=== PATIENT | female | born 1975 | race Caucasian/White ===

== ENCOUNTER 2016-04-14 20:54 | Emergency (ER) | payer OTHER ==
[2016-04-14 21:59] LABS: Hematocrit 39 % (35-47); Hemoglobin 12.8 g/dl (12.0-16.0); Mean Corpuscular HGB Conc 33 g/dl (31-36); Mean Corpuscular Hemoglobin 28 pg (27-31); Mean Corpuscular Volume 84 fL (80-97); Mean Platelet Volume 8 um3 (7.4-10.4); Red Blood Count 4.62 10^6/ul (4.0-5.4); Red Cell Distribution Width 13 % (10.5-15); White Blood Count 14.2 10^3/ul (3.5-10.8)
[2016-04-14 22:11] LABS: Comments Flag Yes
[2016-04-14 22:12] LABS: Add Diff/Slide Review? Slide Review Added
[2016-04-14 22:37] LABS: BUN/Creatinine Ratio 18.7 (8-20); Calcium 9.1 mg/dL (8.6-10.3); EGFR African American 109.5 (>60); EGFR Non-African American 85.2 (>60); Globulin 3.1 g/dL (2-4); Potassium 3.5 mmol/L (3.5-5.0); Total Bilirubin 1.1 mg/dL (0.2-1.0); Total Protein 7.1 g/dL (6.4-8.9)
--- NOTE | 2016-04-14 22:41 | ED ---
Gardenia Conde Claudia, scribed for Tyson Cannon MD on 04/14/16 at 2119 . Hypertension - HPI Summary HPI Summary: 40 year old female presents to the ED with elevated BP. Pt notes that she has had left sided neck and jaw pain for the past 1-2 days since driving back from [place]. She notes left arm pain since today. Pt went to a chiropractor for the neck pain yesterday and they took her BP and it measured high. Pt also noted taking it several times today and it was still elevated ( 258/154) and she became concerned since she has no PMHx of HTN. Pt has made an appt with her PCP for tomorrow. - History of Current Complaint Chief Complaint: EDHypertension Stated Complaint: HIGH BLOOD PRESSURE/LT ARM PAIN Time Seen by Provider: 04/14/16 21:09 Hx Obtained From: Patient Onset/Duration: Started Hours Ago - Allergies/Home Medications Allergies/Adverse Reactions: Allergies Allergy/AdvReac Type Severity Reaction Status Date / Time Hydrocodone Allergy Intermediate Hallucinati Verified 09/18/15 16:13 ons Latex Allergy Intermediate Hives Verified 09/18/15 16:13 Nitrofurantoin Allergy Intermediate Hives Verified 09/18/15 16:13 [From Macrobid] Sulfamethoxazole Allergy Intermediate Hives Verified 09/18/15 16:13 w/Trimethoprim [From Bactrim] PMH/Surg Hx/FS Hx/Imm Hx Previously Healthy: Yes Endocrine/Hematology History: Denies: Hx Diabetes, Hx Systemic Lupus Erythematosus Cardiovascular History: Denies: Hx Hypertension History: Denies: Hx Dialysis, Hx Renal Disease Musculoskeletal History: Denies: Hx Rheumatoid Arthritis - Cancer History Hx Chemotherapy: No - Surgical History Surgery Procedure, Year, and Place: stomach surgery/tonsils-adnoids; hysterectomy, 2015, [place] Infectious Disease History: No Infectious Disease History: Denies: Traveled Outside the [place] in Last 30 Days - Social History Occupation: Employed Full-time Lives: With Family Substance Use Type: Reports: None Review of Systems Constitutional: Negative Eyes: Negative ENT: Negative Positive: Other - elevated BP Respiratory: Negative Gastrointestinal: Negative Genitourinary: Negative Positive: Other - left neck, jaw and left arm pain Skin: Negative Neurological: Negative Psychological: Normal All Other Systems Reviewed And Are Negative: Yes Physical Exam Triage Information Reviewed: Yes Vital Signs On Initial Exam: Initial Vitals Temp Pulse Resp BP Pulse Ox 98.2 F 97 16 193/91 99 04/14/16 20:56 04/14/16 20:56 04/14/16 20:56 04/14/16 20:56 04/14/16 20:56 Vital Signs Reviewed: Yes Appearance: Positive: Well-Appearing, No Pain Distress, Well-Nourished Skin: Positive: Warm Head/Face: Positive: Normal Head/Face Inspection Eyes: Positive: [place] ENT: Positive: Hearing grossly normal Neck: Positive: Supple Respiratory/Lung Sounds: Positive: Clear to Auscultation, Breath Sounds Present Cardiovascular: Positive: RRR Abdomen Description: Positive: Nontender, Soft Bowel Sounds: Positive: Present Musculoskeletal: Positive: Strength/ROM Intact Neurological: Positive: Sensory/Motor Intact, Alert, Oriented to Person Place, Time Psychiatric: Positive: Affect/Mood Appropriate Diagnostics - Vital Signs Vital Signs Temp Pulse Resp BP Pulse Ox 04/14/16 20:56 98.2 F 97 16 193/91 99 - Laboratory Lab Results: Lab Results 04/14/16 Range/Units 21:50 WBC 14.2 H (3.5-10.8) 10^3/ul RBC 4.62 (4.0-5.4) 10^6/ul Hgb 12.8 (12.0-16.0) g/dl Hct 39 (35-47) % MCV 84 (80-97) fL MCH 28 (27-31) pg MCHC 33 (31-36) g/dl RDW 13 (10.5-15) % Plt Count 292 (150-450) 10^3/ul MPV 8 (7.4-10.4) um3 Neut % (Auto) 50.4 (38-83) % Lymph % (Auto) 38.0 (25-47) % [place] % (Auto) 6.5 (1-9) % Eos % (Auto) 4.3 (0-6) % Baso % (Auto) 0.8 (0-2) % Absolute Neuts (auto) 7.2 (1.5-7.7) 10^3/ul Absolute Lymphs (auto) 5.4 H (1.0-4.8) 10^3/ul Absolute Monos (auto) 0.9 H (0-0.8) 10^3/ul Absolute Eos (auto) 0.6 (0-0.6) 10^3/ul Absolute Basos (auto) 0.1 (0-0.2) 10^3/ul Absolute Nucleated RBC 0.01 10^3/ul Nucleated RBC % 0 Hem Pathologist Commnt Pending Result Diagrams: 04/14/16 21:50 04/14/16 21:50 Lab Statement: Any lab studies that have been ordered have been reviewed, and results considered in the medical decision making process. - EKG 21:28 Cardiac Rate: NL EKG Rhythm: Sinus Rhythm - NSR: 94 beats/min EKG Interpretation: 1st degree heart block Re-Evaluation - Re-Evaluation First Eval Change: Improved Hypertension Course/Dx - Course Assessment/Plan: Pt presents with HTN. After an EKG within nml limits as well as observation. Pt is agreeable with d/c home and follow-up with PCP as per planned appt tomorrow. - Diagnoses Provider Diagnoses: HTN (hypertension) Discharge - Discharge Plan Condition: Stable Disposition: HOME Patient Education Materials: Hypertension (ED) Referrals: Tyler Jarvis DO [Primary Care Provider] - 1 Day (Please follow-up ) The documentation as recorded by the Gardenia novoa Claudia accurately reflects the service I personally performed and the decisions made by , Tyson Cannon MD.
[2016-04-14 23:23] VITALS: BP 143/75
== END 2016-04-14 23:25 | disposition home or self-care (01) ==
LOC: ED 20:54
DX: I48.91 Unspecified atrial fibrillation (principal); Z95.810 Presence of automatic (implantable) cardiac defibrillator; E78.00 Pure hypercholesterolemia, unspecified; Z88.2 Allergy status to sulfonamides; Z87.891 Personal history of nicotine dependence
CPT/HCPCS: 36415; 80053; 84702; 85025; 85060; 93005

== ENCOUNTER 2016-05-16 21:30 | Emergency (ER) | payer OTHER ==
[2016-05-16 21:41] VITALS: BP 174/93
--- NOTE | 2016-05-16 22:21 | UC ---
Respiratory Complaint HPI - HPI Summary HPI Summary: 40 year old female complaining of sore throat, lymphadenopathy, fatigue, nasal congestion, and fatigue which began . - History of Current Complaint Chief Complaint: UCRespiratory Stated Complaint: SORE THROAT Time Seen by Provider: 05/16/16 21:48 Hx Obtained From: Patient Hx Last Menstrual Period: hysterectomy ?: No Onset/Duration: Gradual Onset Associated Signs And Symptoms: Positive: Chills, URI, Nasal Congestion, Hoarseness - Allergies/Home Medications Allergies/Adverse Reactions: Allergies Allergy/AdvReac Type Severity Reaction Status Date / Time Hydrocodone Allergy Intermediate Hallucinati Verified 05/16/16 21:41 ons Latex Allergy Intermediate Hives Verified 05/16/16 21:41 Nitrofurantoin Allergy Intermediate Hives Verified 05/16/16 21:41 [From Macrobid] Sulfamethoxazole Allergy Intermediate Hives Verified 05/16/16 21:41 w/Trimethoprim [From Bactrim] Home Medications: Home Medications Estrogens, Conjugated [Premarin] 0.3 mg PO 05/16/16 [History] PMH/Surg Hx/FS Hx/Imm Hx Previously Healthy: Yes Endocrine History Of: Denies: Diabetes Cardiovascular History Of: Denies: Hypertension Respiratory History Of: Denies: COPD, Asthma, Bronchitis, Pneumonia, Pulmonary Embolism Neurological History Of: Denies: TIA, CVA, Dementia, Seizures, Migraine Psychological History Of: Denies: Anxiety, Depression, Bipolar Disorder, Schizophrenia, Post Traumatic Stress Disorder - Surgical History Surgical History: Yes Surgery Procedure, Year, and Place: stomach surgery/tonsils-adnoids; hysterectomy, 2015, [place]. 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2 F 05/16/16 21:35 Pulse 82 02/06/17 21:35 Resp 16 05/16/16 21:35 BP 174/93 05/16/16 21:35 Pulse Ox 99 05/16/16 21:35 Vital Signs Reviewed: Yes Eye Exam: Normal ENT: Positive: Pharyngeal erythema, Nasal congestion, TMs normal, Tonsillar exudate - Pharyngeal exudate Dental Exam: Normal Neck: Positive: Enlarged Nodes @ - Cervical Respiratory: Positive: Chest non-tender, Lungs clear, Normal breath sounds, No respiratory distress Cardiovascular: Positive: RRR, No Murmur, Pulses Normal Abdomen Description: Positive: Nontender, No Organomegaly, Soft Bowel Sounds: Positive: Present Musculoskeletal Exam: Normal Musculoskeletal: Positive: Strength Intact Neurological Exam: Normal Neurological: Positive: Alert Psychological Exam: Normal Skin Exam: Normal UC Diagnostic Evaluation - Laboratory O2 Sat by Pulse Oximetry: 99 Respiratory Course/Dx - Differential Dx/Diagnosis Provider Diagnoses: URI, likely viral Discharge - Discharge Plan Condition: Stable Disposition: HOME Patient Education Materials: Upper Respiratory Infection (ED) Forms: *Work Release Referrals: Tyler Jarvis DO [Primary Care Provider] - If Needed
== END 2016-05-16 22:39 | disposition home or self-care (01) ==
LOC: UCEAST 21:30
DX: J06.9 Acute upper respiratory infection, unspecified (principal); Z88.5 Allergy status to narcotic agent; Z88.1 Allergy status to other antibiotic agents; Z88.2 Allergy status to sulfonamides
CPT/HCPCS: 87651; 99211; G0463

== ENCOUNTER 2018-06-26 18:56 | Emergency (ER) | payer OTHER ==
--- OUTSIDE RECORDS SUMMARY | 2018-06-26 19:10 | XMS REPORT | Continuity of Care Document ---
:1975 External Reference #:[id number] Author Name Aldair Gordon M.D. Address [address] [facility] [address] [place] [address] Care Team Providers Name Role Phone HCP given Primary Care Physician Unavailable Payers Date Identification Numbers Payment Provider Subscriber Policy Number: [id number] Anamkelsicuca San PayID: [id number] [address] [place] [address] Advance Directives Description No Information Available Problems Date Description Provider Status Onset: 06/15/2012 Idiopathic scoliosis AND/OR Shon López Active kyphoscoliosis Onset: 06/15/2012 Obesity Shon López Active Onset: 06/15/2012 Migraine with typical aura Shon López Active Onset: 03/29/2013 Cough Tyler Jarvis D.O. Active Onset: 03/29/2013 Acute bronchitis Tyler Jarvis D.O. Active Onset: 10/23/2014 Vitamin D deficiency Tyler Jarvis D.O. Active Onset: 10/23/2014 Plantar fascial fibromatosis Tyler Jarvis D.O. Active Onset: 06/15/2016 Recurrent major depressive episodes Jazmín Lund PA Active Onset: 06/15/2016 Binge eating disorder Jazmín Lund PA Active Onset: 01/03/2017 Anxiety state Tyler Jarvis D.O. Active Onset: 02/23/2017 Vitamin B-complex deficiency Tyler Jarvis D.O. 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 Currently Working Tobacco Use Start: Unknown Never Smoked Cigarettes ETOH Use Denies alcohol use Recreational Drug Use Denies Drug Use Tobacco Use Start: Unknown Patient has never smoked Smoking Status Reviewed: 05/24/18 Patient has never smoked Exercise Type/Frequency Exercises sporadically Sun Exposure Uses sunscreen Seat Belt/Car Seat Yes Currently Active Patient is currently sexually active Contraceptive Methods None Age 1st [place] 14 Years Old Additional Info Sexual preference is men Allergies, Adverse Reactions, Alerts Date Description Reaction Status Severity Comments 05/25/2012 Sulfa Active 06/15/2012 Hydrocodone Active rash 12/04/2012 Bactrim Active hives, hospitalization 12/04/2012 Macrobid Active hives, hospitalization 10/23/2014 Latex Active 10/23/2014 Adhesives Active Medications Medication Date Status Form Strength Qnty SIG Indications Ordering Provider Womens Multi 04/29 Active Capsules daiy Bipap 02/19 Active Cevimeline HCL 10/24 Active Capsules 30mg take 1 capsule by mouth three times a day as needed for dry mouth Restasis 06/12 Active Emulsion 0.05% 1 drop OU Unknown Multid bid Premarin 06/13 Active Tablets 0.625mg take one tablet by mouth once daily Sumatriptan 10/25 Active Tablets 50mg 12tab take 1 G43.109 Simona Succinate s tablet by Tyler mouth AT D.O. Onset Of Migraine; May Repeat Once After 2 Hours If Needed; Max Dose Of 3 Days/Week Folic Acid 10/24 Hx Tablets 1mg 1 by mouth every day - 03/29 Hydroxychloroquin 06/12 Hx Tablets 200mg 2 po daily Unknown e Sulfate /2017 - 10/24 Cpap 9CM 06/12 Hx Unknown - 02/19 Vitamin D3 02/23 Hx Capsules 5000Unit 90cap 1 by mouth E55.9 Simona, Maximum Strength /2016 s every day Tyler, - D.O. 02/07 Prednisone 02/23 Hx Tablets 5mg 14tab 1 by mouth M06.9 S[place]chak, /2016 s every day Tyler, - for 2 D.O. 03/09 weeks Buspirone HCL 01/03 Hx Tablets 5mg 60tab take one F41.9 Sopchak, s tablet by Tyler, - mouth D.O. 02/07 twice a day as needed for anxiety Escitalopram 06/15 Hx Tablets 10mg 30tab 1 by mouth F33.9 Hektor, s every day ALISTAIR [place] - 01/02 Lidocaine 11/17 Hx Patches 5% 14uni apply 12 [facility] Tyler, - 12 hours D.O. 05/03 off needed to area of pain. Gabapentin 11/17 Hx Capsules 300mg 90cap 1 by mouth B02.9 S[place]chak, s three Tyler, - times a D.O. 05/03 day needed for nerve pain. Tramadol HCL 11/17 Hx Tablets 50mg 30tab 1-2 by R10.30 [place]ak, /2015 s mouth Tyler, - every 6 D.O. 09 hours as needed for pain Valacyclovir HCL 11/17 Hx Tablets 1gm 21tab 1 three B02.9 [facility] times a Tyler, - day for 7 D.O. Vitamin E 11/16 Hx Capsules daily Unknown - 06/14 Magox 400 10/25 Hx Tablets 400(241.3 360ta 1-4 G43.109 [facility], mg) mg bs tablets Tyler, - every D.O. 05/03 night at bedtime as directed for migraine prophilaxi s Vitamin D3 10/25 Hx Capsules 5000Unit 90cap 1 [facility]55.9 [facility] every day Tyler, - D.O. 06/14 Vitamin D 10/24 Hx Tablets 1000Unit 1 by mouth E55.9 Unknown every day - 10/25 Womens One Daily 10/24 Hx Tablets 1 po daily Unknown - 06/14 Tramadol HCL 09/17 Hx Tablets 50mg 30tab 1-2 by R10.30 s mouth Tyler, - every 6 D.O. 07/ hours as needed for pain Ondansetron HCL 01/30 Hx Tablets 4mg 21tab 1 tabs tid s as needed Tyler, - for D.O. 02/06 nausea/vom iting Probiotic Daily 01/30 Hx Capsules 1 unit R19.4 dose daily Tyler, - D.O. 04/01 Vitamin D3 10/23 Hx Tablets 5000Unit 90tab 1 tab by 268.9 [facility] s mouth Tyler, - every day D.O. 10/25 or 7 tabs once a week Premarin 10/22 Hx Tablets 1.25mg 1 tab Unknown daily - 09/18 Azithromycin 10/29 Hx Tablets 500mg 3tabs take 1 461.0 tablet by Tyler, - mouth D.O. 10/22 daily for 3 days for infection Flonase 10/29 Hx Suspension 50mcg/Act 1unit inhale 2 461.0 s sprays Tyler, - into D.O. 10/22 nostril daily in each nostril for nose inflammati on Anusol-HC 10/22 Hx Cream 2.5% 30gm apply 455.3 rectally Tyler, - four times D.O. 10/22 a day Vitamin C 10/21 Hx Chewtabs 500mg OTC 1 po daily - 10/22 Ventolin HFA 03/29 Hx Aerosol 108(90Bas 1unit inhale 2 786.2 [facility] s puffs by Tyler, - mcg/Act mouth D.O. 06/01 every hours as needed for cough or chest congestion Advair HFA 03/29 Hx Aerosol 230-21mcg 2 puffs 786.2 [place]ak, /2012 /Act twice a Tyler, - day until D.O. 06/01 No Active 12/04 Hx Unknown Medications /2012 - 12/04 Augmentin 12/04 Hx Suspension 250-62.5m 300ml 3 tsp by 683 S[place]chak, /2013 Rec g/5ML mouth Tyler, - twice a D.O. Augmentin 12/04 Hx Suspension 400-57mg/ 225ml 2.25 tsp Rec 5ML po bid x Tyler, - 10 days D.O. 12/04 No Active 12/04 Hx Unknown Medications /2012 - 12/04 Augmentin 12/04 Hx Suspension 250-62.5m 200ml 2 tsp by Rec g/5ML mouth Tyler, - twice a D.O. /2012 Amoxicillin 12/04 Hx Suspension 250mg/5ML 150ml 1 1/2 tsp Rec by mouth Tyler, - twice a D.O. 03/28 day x days No Active 05/25 Hx Unknown Medications - 05/25 Ibuprofen 05/25 Hx Tablets 800mg 60tab 1 po q6-8 786.59 Silco, s hrs prn Darion Quinteros M.D. 12/04 Ventolin HFA 05/25 Hx Aerosol 108(90Bas 1cani 2 puff q 466.0 Silcoff, e) mcg/ac ster 4-6 Darion Quinteros M.D. 05/25 Ventolin HFA 05/25 Hx Aerosol 108(90Bas 1cani 2 puff q 466.0 Silcoff, e) ster Enrique Quinteros - mcg/Act M.DRonald 12/04 Claritin-D 12 Hx Tablets ER 5-120mg OTC prn use Unknown Hour /0000 12HR - 04/15 Metronidazole Hx Gel 0.75% Use 1 Unknown /0000 Applicator - ful Every 06/14 Evening AT Bedtime For 5 Days Premarin Hx Tablets 0.3mg 1 tab po Unknown /0000 daily - 06/15 Medications Administered in Office Medication Date Status Form Strength Qnty SIG Indications Ordering Provider B12 Injection Administered Injection Simona 019 Tyler, D.O. B12 Injection Administered Injection Nurse's 019 Schedule SC/Im Administered Injection Sopchak, Injections 019 Tyler, D.O. B12 Injection Administered Injection Nurse's 018 Schedule SC/Im Administered Injection Nurse's Injections 018 Schedule B12 Injection Administered Injection Nurse's 018 Schedule SC/Im Administered Injection Nurse's Injections 018 Schedule B12 Injection Administered Injection Sopchak, 018 Tyler, D.O. SC/Im Administered Injection Sopchak, Injections 018 Tyler, D.O. B12 Injection Administered Injection S[place]chak, 018 Tyler, D.O. SC/Im Administered Injection Sopchak, Injections 018 Tyler, D.O. B12 Injection Administered Injection Sopchak, 018 Tyler, D.O. SC/Im Administered Injection Sopchak, Injections 018 Tyler, D.O. B12 Injection Administered Injection Sopchak, 017 Tyler, D.O. SC/Im Administered Injection Sopchak, Injections 017 Tyler, D.O. Immunizations CPT Code Status Date Vaccine Lot # [id number] Given 02/08/2018 Influenza Virus Vaccine, Quadrivalent, Split, [id number] Preservative Free 11447 Given 04/12/2017 Influenza Virus Vaccine, Quadrivalent, Split, [id number] Preservative Free 06554 Given 04/15/2016 Influenza Virus Vaccine, Quadrivalent, Split, [id number] Preservative Free 48158 Given 04/05/2013 Adacel or Boostrix, TDaP [id number] 47404 Given 04/05/2013 Flu, Split Virus [id number] Vital Signs Date Vital Result Comment 06/12/2018 9:05am BP Systolic 152 mmHg BP Diastolic 92 mmHg BP Systolic Recheck 144 mmHg 138/86 BP Diastolic Recheck 77 mmHg 138/86 Heart Rate 71 /min Weight 229.00 lb with shoes 05/24/2018 8:39am BP Systolic 128 mmHg BP Diastolic 88 mmHg Height 68.5 inches 5'8.50" Weight 230.00 lb BMI (Body Mass Index) 34.5 kg/m2 05/15/2018 3:13pm BP Systolic 136 mmHg BP Diastolic 86 mmHg Weight 234.00 lb 04/30/2018 11:00am BP Systolic 134 mmHg BP Diastolic 80 mmHg Weight 238.00 lb w/shoes 03/30/2018 9:35am BP Systolic 142 mmHg BP Diastolic 82 mmHg Weight 249.50 lb 02/20/2018 9:41am BP Systolic 134 mmHg BP Diastolic 78 mmHg Height 68.50 inches 5'8.50" Weight 242.00 lb BMI (Body Mass Index) 36.3 kg/m2 02/08/2018 8:46am BP Systolic 140 mmHg BP Diastolic 80 mmHg Height 68.50 inches 5'8.50" Weight 242.00 lb BMI (Body Mass Index) 36.3 kg/m2 08/03/2017 1:40pm BP Systolic 124 mmHg BP Diastolic 76 mmHg 06/13/2017 4:12pm BP Systolic 134 mmHg BP Diastolic 72 mmHg Weight 242.00 lb 04/12/2017 2:59pm BP Systolic 124 mmHg BP Diastolic 78 mmHg Weight 238.00 lb 02/23/2017 2:00pm BP Systolic 142 mmHg BP Diastolic 92 mmHg Weight 236.00 lb 01/03/2017 2:14pm BP Systolic 132 mmHg BP Diastolic 85 mmHg Height 67.5 inches 5'7.50" Weight 234.00 lb BMI (Body Mass Index) 36.1 kg/m2 06/15/2016 11:15am BP Systolic 138 mmHg BP Diastolic 85 mmHg Weight 233.00 lb with shoes 05/04/2016 11:23am BP Systolic 130 mmHg BP Diastolic 85 mmHg Weight 236.00 lb with shoes 04/15/2016 3:49pm BP Systolic 136 mmHg k BP Diastolic 84 mmHg k Heart Rate 70 /min Weight 236.00 lb 11/18/2015 5:18pm BP Systolic 144 mmHg BP Diastolic 91 mmHg Heart Rate 82 /min Body Temperature 98.0 F Weight 229.00 lb w/shoes 10/26/2015 9:55am BP Systolic 148 mmHg BP Diastolic 88 mmHg Height 68 inches 5'8" Weight 230.00 lb BMI (Body Mass Index) 35.0 kg/m2 09/19/2015 9:26am BP Systolic 142 mmHg BP Diastolic 90 mmHg Heart Rate 80 /min Respiratory Rate 16 /min Body Temperature 98.2 F 09/18/2015 2:02pm BP Systolic 166 mmHg BP Diastolic 87 mmHg BP Systolic Recheck 162 mmHg BP Diastolic Recheck 99 mmHg Heart Rate 89 /min 01/30/2015 2:14pm BP Systolic 135 mmHg BP Diastolic 82 mmHg Body Temperature 98.1 F Weight 242.00 lb with sneakers 10/23/2014 10:40am BP Systolic 136 mmHg BP Diastolic 84 mmHg Height 68 inches 5'8" Weight 243.00 lb BMI (Body Mass Index) 36.9 kg/m2 10/29/2013 5:36pm BP Systolic 118 mmHg BP Diastolic 78 mmHg Body Temperature 99.1 F 10/22/2013 10:37am BP Systolic 118 mmHg BP Diastolic 80 mmHg Body Temperature 98.4 F Height 68 inches 5'8" Weight 220.00 lb BMI (Body Mass Index) 33.4 kg/m2 Last Menstrual Period [id number] 06/01/2013 10:33am BP Systolic 148 mmHg BP Diastolic 84 mmHg Heart Rate 89 /min Body Temperature 98.5 F Height 68 inches 5'8" Weight 229.00 lb shoes on BMI (Body Mass Index) 34.8 kg/m2 04/05/2013 10:12am BP Systolic 140 mmHg BP Diastolic 76 mmHg Weight 226.00 lb shoes on 03/29/2013 3:24pm BP Systolic 140 mmHg BP Diastolic 88 mmHg Heart Rate 99 /min O2 % BldC Oximetry 98 % on Ra Body Temperature 98.3 F Weight 225.00 lb shoes on 12/19/2012 4:57pm BP Systolic 130 mmHg BP Diastolic 84 mmHg Body Temperature 98.7 F 12/04/2012 9:31am BP Systolic 140 mmHg BP Diastolic 80 mmHg Body Temperature 98.7 F Height 68 inches 5'8" Weight 225.00 lb BMI (Body Mass Index) 34.2 kg/m2 06/15/2012 2:18pm BP Systolic 128 mmHg BP Diastolic 84 mmHg Heart Rate 81 /min Weight 216.00 lb 05/25/2012 4:16pm BP Systolic 118 mmHg BP Diastolic 80 mmHg O2 % BldC Oximetry 98 % Body Temperature 98.3 F Height 67.50 inches 5'7.50" Weight 216.00 lb BMI (Body Mass Index) 33.3 kg/m2 Results Test Date Facility Test Result H/L Range Note [facility] In[facility] 05/24/2018 [facility] House [facility] Glucose - 1 [facility] Bilirubin - [facility] Ketones - Ua Specific [place] 1.010 [facility] Blood - [facility] PH 6.0 [facility] Protein - [facility] Urobilinogen - [facility]a Nitrite - [facility]a Leukocytes - CBC Auto Diff 03/06/2018 [facility] White Blood 12.0 10^3/uL High 3.5 -10.8 [phone] Count Red Blood Count 4.64 10^6/uL N 4.00-5.40 Hemoglobin 13.4 g/dL N 12.0-16.0 Hematocrit 40 % N 35-47 Mean Corpuscular Volume 85 fL N 80-97 Mean Corpuscular Hemoglobin 29 pg N 27-31 Mean Corpuscular HGB Conc 34 g/dL N 31-36 Red Cell Distribution Width 13 % N 10.5-15 Platelet Count 319 10^3/uL N 150-450 Mean Platelet Volume 8.5 fL N 7.4-10.4 Abs Neutrophils 6.3 10^3/uL N 1.5-7.7 Abs Lymphocytes 4.2 10^3/uL N 1.0-4.8 Abs Monocytes 0.8 10^3/uL N 0-0.8 Abs Eosinophils 0.7 10^3/uL High 0-0.6 Abs Basophils 0.1 10^3/uL N 0-0.2 Abs Nucleated RBC 0 10^3/uL Granulocyte % 52.5 % Lymphocyte % 34.7 % Monocyte % 6.6 % Eosinophil % 5.7 % Basophil % 0.5 % Nucleated Red Blood Cells % 0 Laboratory test 03/06/2018 [facility] Erythrocyte Sed Rate 25 mm/Hr High 0-14 finding [phone] Lipid Profile 03/06/2018 [facility] Triglycerides 221 mg/dL 2 (Trig/Chol/HDL) [phone] Cholesterol 205 mg/dL 3 HDL Cholesterol 45.6 mg/dL 4 LDL Cholesterol 115 mg/dL 5 Laboratory test 03/06/2018 [facility] Insulin Level 15.1 mcIU/mL N 2.0-16.0 finding [phone] Laboratory test 03/06/2018 [facility] C Reactive 9.28 mg/L High < 8.01 finding [phone] Protein Comp Metabolic 03/06/2018 [facility] Sodium 139 mmol/L N 135-145 Panel [phone] Potassium 4.5 mmol/L N 3.5-5.0 Chloride 106 mmol/L N 101-111 Co2 Carbon Dioxide 26 mmol/L N 22-32 Anion Gap 7 mmol/L N 2-11 Glucose 98 mg/dL N 70-100 Blood Urea Nitrogen 11 mg/dL N 6-24 Creatinine 0.72 mg/dL N 0.51-0.95 BUN/Creatinine Ratio 15.3 N 8-20 Calcium 9.6 mg/dL N 8.6-10.3 Total Protein 7.2 g/dL N 6.4-8.9 Albumin 4.4 g/dL N 3.2-5.2 Globulin 2.8 g/dL N 2-4 Albumin/Globulin Ratio 1.6 N 1-3 Total Bilirubin 0.90 mg/dL N 0.2-1.0 Alkaline Phosphatase 102 U/L N 34-104 Alt 59 U/L High 7-52 Ast 26 U/L N 13-39 Egfr Non- 88.4 >60 Egfr 107.0 >60 6 Inr/Protime 03/06/2018 [facility] Inr 0.87 N 0.77-1.02 [phone] Comp Metabolic Panel 11/14/2017 [facility] Sodium 140 mmol/L N 135- 145 [phone] Potassium 3.8 mmol/L N 3.5-5.0 Chloride 107 mmol/L N 101-111 Co2 Carbon Dioxide 26 mmol/L N 22-32 Anion Gap 7 mmol/L N 2-11 Glucose 93 mg/dL N 70-100 Blood Urea Nitrogen 10 mg/dL N 6-24 Creatinine 0.79 mg/dL N 0.51-0.95 BUN/Creatinine Ratio 12.7 N 8-20 Calcium 9.6 mg/dL N 8.6-10.3 Total Protein 7.1 g/dL N 6.4-8.9 Albumin 4.3 g/dL N 3.2-5.2 Globulin 2.8 g/dL N 2-4 Albumin/Globulin Ratio 1.5 N 1-3 Total Bilirubin 1.00 mg/dL N 0.2-1.0 Alkaline Phosphatase 88 U/L N 34-104 Alt 35 U/L N 7-52 Ast 24 U/L N 13-39 Egfr Non- 79.8 >60 Egfr 96.6 >60 7 Laboratory test 11/14/2017 [facility] C Reactive 8.85 mg/L High < 8.01 finding [phone] Protein CBC Auto Diff 11/14/2017 [facility] White Blood 13.0 High 3.5-10.8 [phone] Count 10^3/uL Red Blood Count 4.58 10^6/uL N 4.00-5.40 Hemoglobin 13.5 g/dL N 12.0-16.0 Hematocrit 39 % N 35-47 Mean Corpuscular Volume 85 fL N 80-97 Mean Corpuscular Hemoglobin 29 pg N 27-31 Mean Corpuscular HGB Conc 35 g/dL N 31-36 Red Cell Distribution Width 14 % N 10.5-15 Platelet Count 310 10^3/uL N 150-450 Mean Platelet Volume 8.2 um3 N 7.4-10.4 Abs Neutrophils 7.5 10^3/uL N 1.5-7.7 Abs Lymphocytes 4.1 10^3/uL N 1.0-4.8 Abs Monocytes 0.8 10^3/uL N 0-0.8 Abs Eosinophils 0.4 10^3/uL N 0-0.6 Abs Basophils 0.1 10^3/uL N 0-0.2 Abs Nucleated RBC 0 10^3/uL Granulocyte % 58.0 % N 38-83 Lymphocyte % 31.5 % N 25-47 Monocyte % 6.4 % N 0-7 Eosinophil % 3.4 % N 0-6 Basophil % 0.7 % N 0-2 Nucleated Red Blood Cells % 0.1 Laboratory test 11/14/2017 [facility] Erythrocyte Sed 20 mm/Hr High 0 -14 finding [phone] Rate Hla B27 04/27/2017 [facility] Hla B27 Negative 8 [phone] Hla B27 Interp See Comment 9 Myasthenia Gravis 04/27/2017 [facility] MG Lambert-Eaton See Comment 10 (), Adult [phone] Interpret Acetylcholine Receptor Binding 0.00 nmol/L <=0.02 11 Acetylcholine Recept Mod Ab 0 % 12 Anti-Striated Muscle Antibody Positive 1:960 titer Abnormal <1:120 13 Laboratory test 04/27/2017 [facility] Cyclic Citrullinated 40.7 U Abnormal 14 finding [phone] Pep Igg Anca Panel For 04/27/2017 [facility] Myeloperoxidase AB < 0.2 U 15 Vasculitis [phone] Proteinase 3 AB < 0.2 U 16 Angela Igg AB Reflex 04/27/2017 [facility] SS-A/Ro Antibody <0.2 U 17 [phone] SS-B/La Antibody <0.2 U 18 Sm (Anderson) IgG Antibody <0.2 U 19 U1-nRNP Antibody 0.3 U 20 Scl-70 (Scleroderma) Antibody <0.2 U 21 Sharon-1 Antibody <0.2 U 22 Laboratory test 04/27/2017 [facility] Erythrocyte Sed 28 mm/Hr High 0 -14 finding [phone] Rate Hepatitis B Surface Ag Nonreactive Nonreactive Hepatitis B Core AB Igm Nonreactive Nonreactive Hepatitis A AB Igm Nonreactive Nonreactive Hepatitis C Antibody Nonreactive Nonreactive Creatine Kinase(CK) 76 U/L N 10-223 C Reactive Protein 9.32 mg/L High < 5.00 23 Free T4 (Free Thyroxine) 0.73 ng/dL N 0.61-1.12 Thyroperoxidase AB 0.27 IU/mL N <9 Rheumatoid Factor <15 IU/mL <15 24 Laboratory test 01/10/2017 [facility] Vitamin D Total 23.5 ng/mL N 20 -50 finding [phone] 25(Oh) Connective Tissue 01/10/2017 [facility] Anti-Nuclear 0.2 U N 25 Panel [phone] Antibody Cyclic Citrullinated Peptide 27.5 U Abnormal 26 Interpretation See Comment N 27 Laboratory test 01/10/2017 [facility] C Reactive 6.15 mg/L High < 5.00 28 finding [phone] Protein TSH (Thyroid Stim Horm) 1.85 mcIU/mL N 0.34-5.60 Erythrocyte Sed Rate 20 mm/Hr High 0-14 Magnesium 2.3 mg/dL N 1.9-2.7 Vitamin B12 277 pg/mL N 180-914 29 D Dimer Quantitative < 200 ng/mL N Less Than 230 30 Troponin-I (TnI) 0.00 ng/mL N <0.04 Comp Metabolic Panel 01/10/2017 [facility] Sodium 140 mmol/L N 133- 145 [phone] Potassium 4.2 mmol/L N 3.5-5.0 Chloride 107 mmol/L N 101-111 Co2 Carbon Dioxide 28 mmol/L N 22-32 Anion Gap 5 mmol/L N 2-11 Glucose 86 mg/dL N 70-100 Blood Urea Nitrogen 9 mg/dL N 6-24 Creatinine 0.68 mg/dL N 0.51-0.95 BUN/Creatinine Ratio 13.2 N 8-20 Calcium 9.4 mg/dL N 8.6-10.3 Total Protein 7.2 g/dL N 6.4-8.9 Albumin 4.1 g/dL N 3.2-5.2 Globulin 3.1 g/dL N 2-4 Albumin/Globulin Ratio 1.3 N 1-3 Total Bilirubin 1.10 mg/dL High 0.2-1.0 Alkaline Phosphatase 85 U/L N 34-104 Alt 41 U/L N 7-52 Ast 29 U/L N 13-39 Egfr Non- 94.9 N >60 Egfr 122.0 N >60 31 CBC Auto Diff 01/10/2017 [facility] White Blood 11.1 10^3/uL High 3.5 -10.8 [phone] Count Red Blood Count 4.80 10^6/uL N 4.0-5.4 Hemoglobin 13.6 g/dL N 12.0-16.0 Hematocrit 41 % N 35-47 Mean Corpuscular Volume 85 fL N 80-97 Mean Corpuscular Hemoglobin 28 pg N 27-31 Mean Corpuscular HGB Conc 34 g/dL N 31-36 Red Cell Distribution Width 13 % N 10.5-15 Platelet Count 291 10^3/uL N 150-450 Mean Platelet Volume 8 um3 N 7.4-10.4 Abs Neutrophils 6.5 10^3/uL N 1.5-7.7 Abs Lymphocytes 3.4 10^3/uL N 1.0-4.8 Abs Monocytes 0.7 10^3/uL N 0-0.8 Abs Eosinophils 0.4 10^3/uL N 0-0.6 Abs Basophils 0.1 10^3/uL N 0-0.2 Abs Nucleated RBC 0.02 10^3/uL N Granulocyte % 58.2 % N 38-83 Lymphocyte % 31.1 % N 25-47 Monocyte % 6.7 % N 1-9 Eosinophil % 3.5 % N 0-6 Basophil % 0.5 % N 0-2 Nucleated Red Blood Cells % 0.2 N Laboratory test finding 04/14/2016 [facility] HCG 1.88 mIU/ mL N 32 [phone] Pathologist Review (SEE NOTE) N 33 Comp Metabolic Panel 04/14/2016 [facility] Sodium 140 mmol/L N 133- 145 [phone] Potassium 3.5 mmol/L N 3.5-5.0 Chloride 106 mmol/L N 101-111 Co2 Carbon Dioxide 27 mmol/L N 22-32 Anion Gap 7 mmol/L N 2-11 Glucose 119 mg/dL High 70-100 Blood Urea Nitrogen 14 mg/dL N 6-24 Creatinine 0.75 mg/dL N 0.51-0.95 BUN/Creatinine Ratio 18.7 N 8-20 Calcium 9.1 mg/dL N 8.6-10.3 Total Protein 7.1 g/dL N 6.4-8.9 Albumin 4.0 g/dL N 3.2-5.2 Globulin 3.1 g/dL N 2-4 Albumin/Globulin Ratio 1.3 N 1-3 Total Bilirubin 1.10 mg/dL High 0.2-1.0 Alkaline Phosphatase 75 U/L N 34-104 Alt 45 U/L N 7-52 Ast 24 U/L N 13-39 Egfr Non- 85.2 N >60 Egfr 109.5 N >60 34 CBC Auto Diff 04/14/2016 [facility] White Blood 14.2 10^3/uL High 3.5 -10.8 [phone] Count Red Blood Count 4.62 10^6/uL N 4.0-5.4 Hemoglobin 12.8 g/dL N 12.0-16.0 Hematocrit 39 % N 35-47 Mean Corpuscular Volume 84 fL N 80-97 Mean Corpuscular Hemoglobin 28 pg N 27-31 Mean Corpuscular HGB Conc 33 g/dL N 31-36 Red Cell Distribution Width 13 % N 10.5-15 Platelet Count 292 10^3/uL N 150-450 Mean Platelet Volume 8 um3 N 7.4-10.4 Abs Neutrophils 7.2 10^3/uL N 1.5-7.7 Abs Lymphocytes 5.4 10^3/uL High 1.0-4.8 Abs Monocytes 0.9 10^3/uL High 0-0.8 Abs Eosinophils 0.6 10^3/uL N 0-0.6 Abs Basophils 0.1 10^3/uL N 0-0.2 Abs Nucleated RBC 0.01 10^3/uL N Granulocyte % 50.4 % N 38-83 Lymphocyte % 38.0 % N 25-47 Monocyte % 6.5 % N 1-9 Eosinophil % 4.3 % N 0-6 Basophil % 0.8 % N 0-2 Nucleated Red Blood Cells % 0 N Laboratory test 10/09/2015 [facility] FSH (Follicle 52.2 mIU/mL N 35 finding [phone] Stim Hormone) Laboratory test 09/25/2015 [facility] Magnesium 2.1 mg/dL N 1.9-2.7 36 finding [phone] Comp Metabolic 09/25/2015 [facility] Sodium 140 mmol/L N 133-145 Panel [phone] Potassium 3.7 mmol/L N 3.5-5.0 Chloride 106 mmol/L N 101-111 Co2 Carbon Dioxide 25 mmol/L N 22-32 Anion Gap 9 mmol/L N 2-11 Glucose 94 mg/dL N 70-100 Blood Urea Nitrogen 6 mg/dL N 6-24 Creatinine 0.74 mg/dL N 0.51-0.95 BUN/Creatinine Ratio 8.1 N 8-20 Calcium 9.5 mg/dL N 8.6-10.3 Total Protein 7.1 g/dL N 6.4-8.9 Albumin 4.3 g/dL N 3.2-5.2 Globulin 2.8 g/dL N 2-4 Albumin/Globulin Ratio 1.5 N 1-3 Total Bilirubin 0.80 mg/dL N 0.2-1.0 Alkaline Phosphatase 88 U/L N 34-104 Alt 76 U/L High 7-52 Ast 43 U/L High 13-39 Egfr Non- 86.9 N >60 Egfr 111.8 N >60 37 CBC Auto Diff 09/25/2015 [facility] White Blood 11.6 10^3/uL High 3.5 -10.8 [phone] Count Red Blood Count 4.49 10^6/uL N 4.0-5.4 Hemoglobin 12.7 g/dL N 12.0-16.0 Hematocrit 38 % N 35-47 Mean Corpuscular Volume 84 fL N 80-97 Mean Corpuscular Hemoglobin 28 pg N 27-31 Mean Corpuscular HGB Conc 34 g/dL N 31-36 Red Cell Distribution Width 14 % N 10.5-15 Platelet Count 307 10^3/uL N 150-450 Mean Platelet Volume 9 um3 N 7.4-10.4 Abs Neutrophils 6.7 10^3/uL N 1.5-7.7 Abs Lymphocytes 3.7 10^3/uL N 1.0-4.8 Abs Monocytes 0.8 10^3/uL N 0-0.8 Abs Eosinophils 0.4 10^3/uL N 0-0.6 Abs Basophils 0.1 10^3/uL N 0-0.2 Abs Nucleated RBC 0 10^3/uL N Granulocyte % 57.8 % N 38-83 Lymphocyte % 31.4 % N 25-47 Monocyte % 7.2 % N 1-9 Eosinophil % 3.2 % N 0-6 Basophil % 0.4 % N 0-2 Nucleated Red Blood Cells % 0 N Laboratory test 09/25/2015 [facility] C Reactive 4.72 mg/L N < 5.00 38 finding [phone] Protein Erythrocyte Sed Rate 18 mm/Hr High 0-14 Laboratory test 09/21/2015 [facility] C Difficile B PCR SEE RESULT 39 finding [phone] BELOW E.Coli 0157:H7 SEE RESULT BELOW 40 Laboratory test 09/21/2015 [facility] C Difficile B PCR SEE RESULT 41 finding [phone] BELOW O&P Ova & Parasites Screen SEE RESULT BELOW 42 Fecal Lactoferrin (Stool WBC) SEE RESULT BELOW 43 TSH (Thyroid Stim Horm) 3.29 ?IU/mL N 0.34-5.60 Occult Blood,Triple 09/19/2015 In House Misc neg x3 Urine Micro Inhouse 09/19/2015 In House Ua WBC occ Ua RBC occ Ua Casts - Ua Epi 5-10 Ua Other - Ua Glucose - Ua Bilirubin - Ua Ketones - Ua Specific [place] 1.010 Ua Blood - Ua PH 6.0 Ua Protein tr Ua Urobilinogen - Ua Nitrite - Ua Leukocytes - Laboratory test 09/18/2015 [facility] Blood Urea 7 mg/dL N 6-24 finding [phone] Nitrogen Creatinine 09/18/2015 [facility] Creatinine 0.78 mg/dL N 0.51-0.95 [phone] Egfr Non- 81.8 N >60 Egfr 105.2 N >60 44 Laboratory test 09/18/2015 [facility] D Dimer 208 ng/mL N Less Than 45 finding [phone] Quantitative 230 Comp Metabolic 09/18/2015 [facility] Sodium 138 mmol/L N 133-145 Panel [phone] Potassium 3.6 mmol/L N 3.5-5.0 Chloride 105 mmol/L N 101-111 Co2 Carbon Dioxide 25 mmol/L N 22-32 Anion Gap 8 mmol/L N 2-11 Glucose 91 mg/dL N 70-100 Creatinine 0.78 mg/dL N 0.51-0.95 Calcium 9.5 mg/dL N 8.6-10.3 Total Protein 7.6 g/dL N 6.4-8.9 Albumin 4.3 g/dL N 3.2-5.2 Globulin 3.3 g/dL N 2-4 Albumin/Globulin Ratio 1.3 N 1-3 Total Bilirubin 1.10 mg/dL High 0.2-1.0 Alkaline Phosphatase 85 U/L N 34-104 Alt 43 U/L N 7-52 Ast 30 U/L N 13-39 Egfr Non- 81.8 N >60 Egfr 105.2 N >60 46 BUN/Creatinine Ratio 9.0 N 8-20 Laboratory test finding 09/18/2015 [facility] Magnesium 2.0 mg/dL N 1.9-2.7 [phone] Amylase 38 U/L N 29-103 Lipase 22 U/L N 11.0-82.0 C Reactive Protein 20.82 mg/L High < 5.00 47 Troponin-I (TnI) 0.00 ng/mL N <0.03 48 TSH (Thyroid Stim Horm) 2.14 ?IU/mL N 0.34-5.60 CBC Auto Diff 09/18/2015 [facility] White Blood Count 8.6 10^3/uL N 3.5-10.8 [phone] Red Blood Count 4.55 10^6/uL N 4.0-5.4 Hemoglobin 12.9 g/dL N 12.0-16.0 Hematocrit 38 % N 35-47 Mean Corpuscular Volume 84 fL N 80-97 Mean Corpuscular Hemoglobin 28 pg N 27-31 Mean Corpuscular HGB Conc 34 g/dL N 31-36 Red Cell Distribution Width 13 % N 10.5-15 Platelet Count 242 10^3/uL N 150-450 Mean Platelet Volume 8 um3 N 7.4-10.4 Abs Neutrophils 4.6 10^3/uL N 1.5-7.7 Abs Lymphocytes 2.9 10^3/uL N 1.0-4.8 Abs Monocytes 0.8 10^3/uL N 0-0.8 Abs Eosinophils 0.2 10^3/uL N 0-0.6 Abs Basophils 0 10^3/uL N 0-0.2 Abs Nucleated RBC 0.01 10^3/uL N Granulocyte % 53.8 % N 38-83 Lymphocyte % 33.4 % N 25-47 Monocyte % 9.7 % High 1-9 Eosinophil % 2.6 % N 0-6 Basophil % 0.5 % N 0-2 Nucleated Red Blood Cells % 0.1 N Laboratory test 09/18/2015 [facility] Erythrocyte Sed 22 mm/Hr High 0 -14 finding [phone] Rate CBC Auto Diff 01/30/2015 [facility] White Blood Count 12.7 High 4.8- 10.8 [phone] 10^3/uL Red Blood Count 4.51 10^6/uL N 4.0-5.4 Hemoglobin 12.9 g/dL N 12.0-16.0 Hematocrit 39 % N 35-47 Mean Corpuscular Volume 85 fL N 80-97 Mean Corpuscular Hemoglobin 29 pg N 27-31 Mean Corpuscular HGB Conc 34 g/dL N 31-36 Red Cell Distribution Width 14 % N 10.5-15 Platelet Count 282 10^3/uL N 150-450 Mean Platelet Volume 8 um3 N 7.4-10.4 Abs Neutrophils 7.1 10^3/uL N 1.5-7.7 Abs Lymphocytes 4.1 10^3/uL N 1.0-4.8 Abs Monocytes 0.8 10^3/uL N 0-0.8 Abs Eosinophils 0.5 10^3/uL N 0-0.6 Abs Basophils 0.1 10^3/uL N 0-0.2 Abs Nucleated RBC 0 10^3/uL N Granulocyte % 56.3 % N 38-83 Lymphocyte % 32.6 % N 25-47 Monocyte % 6.4 % N 1-9 Eosinophil % 4.2 % N 0-6 Basophil % 0.5 % N 0-2 Nucleated Red Blood Cells % 0 N Comp Metabolic Panel 01/30/2015 [facility] Sodium 137 mmol/L N 133- 145 [phone] Potassium 3.6 mmol/L N 3.5-5.0 Chloride 103 mmol/L N 101-111 Co2 Carbon Dioxide 27 mmol/L N 22-32 Anion Gap 7 mmol/L N 2-11 Glucose 88 mg/dL N 70-100 Blood Urea Nitrogen 11 mg/dL N 6-24 Creatinine 0.84 mg/dL N 0.51-0.95 BUN/Creatinine Ratio 13.1 N 8-20 Calcium 10.3 mg/dL N 8.6-10.3 Total Protein 7.9 g/dL N 6.4-8.9 Albumin 4.4 g/dL N 3.2-5.2 Globulin 3.5 g/dL N 2-4 Albumin/Globulin Ratio 1.3 N 1-3 Total Bilirubin 1.00 mg/dL N 0.2-1.0 Alkaline Phosphatase 82 U/L N 34-104 Alt 34 U/L N 7-52 Ast 26 U/L N 13-39 Egfr Non- 75.1 N >60 Egfr 96.6 N >60 49 Laboratory test 01/30/2015 [facility] Erythrocyte Sed 20 mm/Hr High 0 -14 finding [phone] Rate Urine Micro 01/30/2015 In House Ua WBC - 50 Inhouse Ua RBC - Ua Casts - Ua Epi 3-6 Ua Other - Ua Glucose - Ua Bilirubin - Ua Ketones - Ua Specific [place] 1.010 Ua Blood - Ua PH 6.0 Ua Protein - Ua Urobilinogen - Ua Nitrite - Ua Leukocytes - Comp Metabolic Panel 04/29/2014 [facility] Sodium 137 mmol/L N 133- 145 51 [phone] Potassium 4.2 mmol/L N 3.5-5.0 Chloride 109 mmol/L N 101-111 Co2 Carbon Dioxide 22 mmol/L N 22-32 Anion Gap 6 mmol/L N 2-11 Glucose 110 mg/dL High 70-100 Blood Urea Nitrogen 10 mg/dL N 6-24 Creatinine 0.65 mg/dL N 0.51-0.95 BUN/Creatinine Ratio 15.4 N 8-20 Calcium 9.0 mg/dL N 8.6-10.3 Total Protein 7.1 g/dL N 6.4-8.9 Albumin 4.2 g/dL N 3.2-5.2 Globulin 2.9 g/dL N 2-4 Albumin/Globulin Ratio 1.4 N 1-3 Total Bilirubin 0.70 mg/dL N 0.2-1.0 Alkaline Phosphatase 65 U/L N 34-104 Alt 33 U/L N 7-52 Ast 22 U/L N 13-39 Egfr Non- 101.5 N >60 Egfr 130.5 N >60 52 CBC Auto Diff 04/29/2014 [facility] White Blood 10.9 10^3/uL High 4.8 -10.8 [phone] Count Red Blood Count 4.37 10^6/uL N 4.0-5.4 Hemoglobin 12.5 g/dL N 12.0-16.0 Hematocrit 37 % N 35-47 Mean Corpuscular Volume 85 fL N 80-97 Mean Corpuscular Hemoglobin 29 pg N 27-31 Mean Corpuscular HGB Conc 34 g/dL N 31-36 Red Cell Distribution Width 14 % N 10.5-15 Platelet Count 277 10^3/uL N 150-450 Mean Platelet Volume 9 um3 N 7.4-10.4 Abs Neutrophils 7.0 10^3/uL N 1.5-7.7 Abs Lymphocytes 2.7 10^3/uL N 1.0-4.8 Abs Monocytes 0.7 10^3/uL N 0-0.8 Abs Eosinophils 0.4 10^3/uL N 0-0.6 Abs Basophils 0 10^3/uL N 0-0.2 Abs Nucleated RBC 0.01 10^3/uL N Granulocyte % 64.6 % N 38-83 Lymphocyte % 24.8 % Low 25-47 Monocyte % 6.7 % N 1-9 Eosinophil % 3.4 % N 0-6 Basophil % 0.5 % N 0-2 Nucleated Red Blood Cells % 0.1 N Laboratory test 04/29/2014 [facility] TSH (Thyroid 2.09 IU/mL N 0.34- 5.60 53 finding [phone] Stimulating Horm) Lipid Profile 04/29/2014 [facility] Triglycerides 105 mg/dL N 54 (Trig/Chol/HDL) [phone] Cholesterol 158 mg/dL N 55 HDL Cholesterol 40.2 mg/dL N 56 LDL Cholesterol 97 mg/dL N 57 Vitamin D, 25 04/29/2014 [facility] 25-Hydroxy Vitamin D2 <4.0 ng/mL N Hydroxy [phone] 25-Hydroxy Vitamin D3 14 ng/mL N 25-Hydroxy Vitamin D Total 14 ng/mL Abnormal 58 Surgical 01/03/2014 [facility] S RUN DATE: 58 Pathology [phone] 01/07/ <SEE NOTE> CBC Auto Diff 06/01/2013 [facility] White Blood 12.6 10^3/uL High 4.8 -10. [phone] Count 8 Red Blood Count 4.54 10^6/uL 4.0-5.4 Hemoglobin 12.7 g/dL 12.0-16.0 Hematocrit 38 % 35-47 Mean Corpuscular Volume 84 fL 80-97 Mean Corpuscular Hemoglobin 28 pg 27-31 Mean Corpuscular HGB Conc 33 g/dL 31-36 Red Cell Distribution Width 14 % 10.5-15 Platelet Count 318 10^3/uL 150-450 Mean Platelet Volume 9 um3 7.4-10.4 Abs Neutrophils 7.4 10^3/uL 1.5-7.7 Abs Lymphocytes 4.0 10^3/uL 1.0-4.8 Abs Monocytes 0.8 10^3/uL 0-0.8 Abs Eosinophils 0.4 10^3/uL 0-0.6 Abs Basophils 0.1 10^3/uL 0-0.2 Abs Nucleated RBC 0 10^3/uL Granulocyte % 58.3 % 38-83 Lymphocyte % 31.3 % 25-47 Monocyte % 6.5 % 1-9 Eosinophil % 3.3 % 0-6 Basophil % 0.6 % 0-2 Nucleated Red Blood Cells % 0 Comp Metabolic Panel 06/01/2013 [facility] Sodium 138 mmol/L 133- 145 [phone] Potassium 3.9 mmol/L 3.7-5.6 Chloride 106 mmol/L 101-111 Co2 Carbon Dioxide 26 mmol/L 22-32 Anion Gap 6 mmol/L 2-11 Glucose 84 mg/dL 70-100 Blood Urea Nitrogen 6 mg/dL 6-24 Creatinine 0.69 mg/dL 0.51-0.95 BUN/Creatinine Ratio 8.7 8-20 Calcium 9.4 mg/dL 8.6-10.3 Total Protein 7.2 g/dL 6.4-8.9 Albumin 4.4 g/dL 3.2-5.2 Globulin 2.8 g/dL 2-4 Albumin/Globulin Ratio 1.6 1-3 Total Bilirubin 1.50 mg/dL High 0.2-1.0 Alkaline Phosphatase 60 U/L 34-104 Alt 42 U/L 7-52 Ast 27 U/L 13-39 Egfr Non- 95.2 >60 Egfr 122.5 >60 60 Urine Micro Inhouse 06/01/2013 In House Ua WBC 0-1 Ua RBC - Ua Casts - Ua Epi 0-3 Ua Other - Ua Glucose - Ua Bilirubin - Ua Ketones - Ua Specific [place] 1.005 Ua Blood - Ua PH 6.0 Ua Protein - Ua Urobilinogen - Ua Nitrite - Ua Leukocytes - CBC Auto Diff 12/21/2012 [facility] White Blood Count 10.2 10^3/uL 4.8-10.8 [phone] Red Blood Count 4.22 10^6/uL 4.0-5.4 Hemoglobin 11.6 g/dL Low 12.0-16.0 Hematocrit 36 % 35-47 Mean Corpuscular Volume 86 fL 80-97 Mean Corpuscular Hemoglobin 27 pg 27-31 Mean Corpuscular HGB Conc 32 g/dL 31-36 Red Cell Distribution Width 13 % 10.5-15 Platelet Count 302 10^3/uL 150-450 Mean Platelet Volume 9 um3 7.4-10.4 Abs Neutrophils 6.0 10^3/uL 1.5-7.7 Abs Lymphocytes 3.1 10^3/uL 1.0-4.8 Abs Monocytes 0.6 10^3/uL 0-0.8 Abs Eosinophils 0.3 10^3/uL 0-0.6 Abs Basophils 0.1 10^3/uL 0-0.2 Abs Nucleated RBC 0 10^3/uL Granulocyte % 59.0 % 38-83 Lymphocyte % 30.7 % 25-47 Monocyte % 6.1 % 1-9 Eosinophil % 3.3 % 0-6 Basophil % 0.9 % 0-2 Nucleated Red Blood Cells % 0 Comp Metabolic Panel 12/21/2012 [facility] Sodium 138 mmol/L 133- 145 [phone] Potassium 4.1 mmol/L 3.5-5.0 Chloride 109 mmol/L 101-111 Co2 Carbon Dioxide 23.0 mmol/L 22-32 Anion Gap 6.0 mmol/L 2-11 Glucose 95 mg/dL 70-100 Blood Urea Nitrogen 6 mg/dL 6-24 Creatinine 0.70 mg/dL 0.50-1.40 BUN/Creatinine Ratio 8.6 8-20 Calcium 9.2 mg/dL 8.1-9.9 Total Protein 6.6 g/dL 6.2-8.1 Albumin 3.9 g/dL 3.6-5.4 Globulin 2.7 g/dL 2-4 Albumin/Globulin Ratio 1.4 1-3 Total Bilirubin 1.1 mg/dL 0.4-1.5 Alkaline Phosphatase 60 U/L 30-110 Alt 38 U/L 14-54 Ast 32 U/L 12-42 Egfr Non- 93.6 >60 Egfr 120.4 >60 61 Laboratory test 12/21/2012 [facility] TSH (Thyroid 1.63 miu/mL 0.34- 5.60 62 finding [phone] Stimulating Horm) Lipid Profile 12/21/2012 [facility] Triglycerides 142 mg/dL 40-200 (Trig/Chol/HDL) [phone] Cholesterol 195 mg/dL Less than 200 HDL Cholesterol 44 mg/dL 40-60 63 Cholesterol/HDL Ratio 4.4 Average 1-4.44 LDL Cholesterol 122.6 High Less Than 100 64 Laboratory test finding 12/04/2012 In House Culture Throat Rapid Screen neg Culture Throat neg CBC Auto Diff 12/04/2012 [facility] White Blood 12.7 10^3/uL High 4.8 -10.8 [phone] Count Red Blood Count 4.38 10^6/uL 4.0-5.4 Hemoglobin 12.5 g/dL 12.0-16.0 Hematocrit 38 % 35-47 Mean Corpuscular Volume 87 fL 80-97 Mean Corpuscular Hemoglobin 29 pg 27-31 Mean Corpuscular HGB Conc 33 g/dL 31-36 Red Cell Distribution Width 13 % 10.5-15 Platelet Count 254 10^3/uL 150-450 Mean Platelet Volume 9 um3 7.4-10.4 Abs Neutrophils 9.2 10^3/uL High 1.5-7.7 Abs Lymphocytes 2.2 10^3/uL 1.0-4.8 Abs Monocytes 0.9 10^3/uL High 0-0.8 Abs Eosinophils 0.3 10^3/uL 0-0.6 Abs Basophils 0 10^3/uL 0-0.2 Abs Nucleated RBC 0 10^3/uL Granulocyte % 72.8 % 38-83 Lymphocyte % 17.2 % Low 25-47 Monocyte % 7.0 % 1-9 Eosinophil % 2.7 % 0-6 Basophil % 0.3 % 0-2 Nucleated Red Blood Cells % 0 Coleman Dawn 12/04/2012 [facility] Ebv Capsid Ag Positive Negative Comprehensive [phone] IgG Ab Ebv Capsid Ag IgM Ab Negative Negative Coleman-Dawn Nuclear Antigen Positive Negative Coleman-Dawn Virus Interp See Comment 65 1 void, clear, gold 2 Desirable: <150 Borderline High: 150-199 High: 200-499 Very High: >500 3 Desirable: <200 Borderline High: 200-239 High: >239 4 Low: <40 Desirable: 40-60 High: >60 5 Desirable: <100 Near Optimal: 100-129 Borderline High: 130-159 High: 160-189 Very High: >189 6 Because ethnic data is not always readily available, this report includes an eGFR for both -Americans and non- Americans. The National Kidney Disease Education Program (NKDEP) does not endorse the use of the MDRD equation for patients that are not between the ages of 18 and 70, are , have extremes of body size, muscle mass, or nutritional status, or are non- or non-. According to the National Kidney Foundation, irrespective of diagnosis, the stage of the disease is based on the level of kidney function: Stage Description GFR(mL/min/1.73 m(2)) 1 Kidney damage with normal or decreased GFR 90 2 Kidney damage with mild decrease in GFR 60-89 3 Moderate decrease in GFR 30-59 4 Severe decrease in GFR 15-29 5 Kidney failure <15 (or dialysis) 7 Because ethnic data is not always readily available, this report includes an eGFR for both -Americans and non- Americans. The National Kidney Disease Education Program (NKDEP) does not endorse the use of the MDRD equation for patients that are not between the ages of 18 and 70, are , have extremes of body size, muscle mass, or nutritional status, or are non- or non-. According to the National Kidney Foundation, irrespective of diagnosis, the stage of the disease is based on the level of kidney function: Stage Description GFR(mL/min/1.73 m(2)) 1 Kidney damage with normal or decreased GFR 90 2 Kidney damage with mild decrease in GFR 60-89 3 Moderate decrease in GFR 30-59 4 Severe decrease in GFR 15-29 5 Kidney failure <15 (or dialysis) 8 REFERENCE VALUE Not Applicable 9 RESULT: HLA-B27 antigen was not detected. ADDITIONAL INFORMATION Method: Flow Cytometry Performing Laboratory CLIA# [id number] Test Performed by: [facility] - [address] [address] 10 The clinical significance of this antibody as an isolated finding is uncertain. If myasthenia gravis is strongly suspected, it is suggested to repeat this test in 6 months. 11 ADDITIONAL INFORMATION This test was developed and its performance characteristics determined by [facility] in a manner consistent with CLIA requirements. This test has not been cleared or approved by the U.S. Food and Drug Administration. 12 REFERENCE VALUE 0-20% (reported as _% loss of AChR) ADDITIONAL INFORMATION This test was developed and its performance characteristics determined by [facility] in a manner consistent with CLIA requirements. This test has not been cleared or approved by the U.S. Food and Drug Administration. 13 ADDITIONAL INFORMATION This test was developed and its performance characteristics determined by [facility] in a manner consistent with CLIA requirements. This test has not been cleared or approved by the U.S. Food and Drug Administration. Test Performed by: [facility] - [address] [address] 14 Interpretation: Positive (40.0-59.9) REFERENCE VALUE <20.0 (Negative) Test Performed by: [facility] - [address] [address] 15 REFERENCE VALUE <0.4 (Negative) 16 REFERENCE VALUE <0.4 (Negative) Test Performed by: [facility] - [address] [address] 17 REFERENCE VALUE <1.0 (Negative) 18 REFERENCE VALUE <1.0 (Negative) 19 REFERENCE VALUE <1.0 (Negative) 20 REFERENCE VALUE <1.0 (Negative) 21 REFERENCE VALUE <1.0 (Negative) 22 REFERENCE VALUE <1.0 (Negative) Test Performed by: [address] [address] 23 Acute inflammation: >10.00 24 Test Performed by: [address] [address] 25 REFERENCE VALUE <=1.0 (Negative) 26 Interpretation: Weak Positive (20.0-39.9) REFERENCE VALUE <20.0 (Negative) 27 RESULT: Compatible with rheumatoid arthritis. Test Performed by: [facility] - [address] [address] 28 Acute inflammation: >10.00 29 Normal Range 180 to 914 Indeterminate Range 145 to 180 Deficient Range <145 30 Please note: The following may produce a false positive D Dimer test: - Rheumatoid factor greater than 60 IU/ml - Plasma hemoglobin greater than 0.05 gm/dl - Bilirubin greater than 50 mg/dl - Lipids greater than 1000 mg/dl - FDP greater than 20 ug/ml 31 Because ethnic data is not always readily available, this report includes an eGFR for both -Americans and non- Americans. The National Kidney Disease Education Program (NKDEP) does not endorse the use of the MDRD equation for patients that are not between the ages of 18 and 70, are , have extremes of body size, muscle mass, or nutritional status, or are non- or non-. According to the National Kidney Foundation, irrespective of diagnosis, the stage of the disease is based on the level of kidney function: Stage Description GFR(mL/min/1.73 m(2)) 1 Kidney damage with normal or decreased GFR 90 2 Kidney damage with mild decrease in GFR 60-89 3 Moderate decrease in GFR 30-59 4 Severe decrease in GFR 15-29 5 Kidney failure <15 (or dialysis) 32 <5.0 Negative 5.0 - 25.0 Indeterminate (Repeat testing recommended after 72 hours) >25.0 Positive Perimenopausal women can display HCG levels of up to 20 mIU/mL 33 Mild absolute lymphocytosis and monocytosis, favor reactive. Reviewed by Anita New MD 34 Because ethnic data is not always readily available, this report includes an eGFR for both -Americans and non- Americans. The National Kidney Disease Education Program (NKDEP) does not endorse the use of the MDRD equation for patients that are not between the ages of 18 and 70, are , have extremes of body size, muscle mass, or nutritional status, or are non- or non-. According to the National Kidney Foundation, irrespective of diagnosis, the stage of the disease is based on the level of kidney function: Stage Description GFR(mL/min/1.73 m(2)) 1 Kidney damage with normal or decreased GFR 90 2 Kidney damage with mild decrease in GFR 60-89 3 Moderate decrease in GFR 30-59 4 Severe decrease in GFR 15-29 5 Kidney failure <15 (or dialysis) 35 Normally menstruating females - Follicular phase 3 - 9 - Mid-cycle peak 4 - 23 - Luteal phase 1 - 6 Postmenopausal females 16 - 114 36 Zinc not done by lab. SL 37 Because ethnic data is not always readily available, this report includes an eGFR for both -Americans and non- Americans. The National Kidney Disease Education Program (NKDEP) does not endorse the use of the MDRD equation for patients that are not between the ages of 18 and 70, are , have extremes of body size, muscle mass, or nutritional status, or are non- or non-. According to the National Kidney Foundation, irrespective of diagnosis, the stage of the disease is based on the level of kidney function: Stage Description GFR(mL/min/1.73 m(2)) 1 Kidney damage with normal or decreased GFR 90 2 Kidney damage with mild decrease in GFR 60-89 3 Moderate decrease in GFR 30-59 4 Severe decrease in GFR 15-29 5 Kidney failure <15 (or dialysis) 38 Acute inflammation: >10.00 39 SEE RESULT BELOW Name: GALINA SAN : [address]: Prabhjot Lynn MD Acct: [id number] Unit: [id number] AGE: 39 Location: [facility] Re09/21/15 SEX: F Status: REG REF SPEC: [id number] GIN: 09/21/15-[address] [facility] [facility] [address]: Prabhjot Lynn MD REQ: [id number] RECD: 09/21/15 STATUS: RES _ SOURCE: STOOL SPDESC: ORDERED: E.coli O157:H7/R, C. diff PCR/S, Stool Culture/R, Fecal Lactoferr/R , O P: Giar/Crypt/R Procedure Result Reported Site E.coli O157:H7 Culture PENDING Stool Culture Final 09/23/15- 1231 ML Result No enteric pathogens isolated Testing for Salmonella, Shigella, Aeromonas, Plesiomonas, Yersinia and Campylobacter are included in a Stool Culture. Vibrio spp not routinely tested for in a stool culture. If testing is desired, please request specifically when placing test order. Sensitivities not routinely performed on stool isolates, as antibiotics may prolong the carriage rate of bacteria. Please contact the microbiology lab if sensitivities are required. Stool Specimen Description Final 09/21/15- 1445 ML Stool Color Brown Stool Form Nonformed Stool Consistency Soft Shiga Toxin 1 2 Final 09/22/15- 1009 ML Organism 1 Negative Shiga Toxin 1 2 CONTINUED ON NEXT PAGE * ML=Testing performed at Main Lab DEPARTMENT OF PATHOLOGY, [address] [place] [address] Vinny Best M.D. Director JOSHUA # [id number] Patient: GALINA SAN [id number] (Continued) Specimen: [id number] Collected: 09/21/15-134 Received: 09/21/15-1200 (Continued) Procedure Result Reported Site Shiga Toxin 1 2 Final (continued) 09/22/15- 1009 Immunochromatographic Assay C. difficile PCR Final 09/21/15- 1531 ML Organism 1 027 Presumptive NEGATIVE Organism 2 Toxigenic C.diff NEGATIVE Fecal Lactoferrin (Stool WBC) Final 09/21/15- 1442 ML Fecal Lactoferrin Negative by Immunoassay TEST LIMITATIONS: Assay detects elevated levels of lactoferrin released from fecal leukocytes as a marker of intestinal inflammation. The test may not be appropriate in immunocompromised persons. Fecal samples from breast fed infants should not be used with this assay. O P: Giardia/Cryptospor Screen Final 09/21/15- 1440 ML Organism 1 Neg Cryptosporidium/Giardia Giardia and cryptosporidium antigen testing performed by enzyme immunoassay. If patient is immunocompromised or has traveled to or is from a developing country, a full ova and parasite exam with microscopic (OPMIC) is recommended. All samples will be held one month in case full ova and parasite testing is requested. Contact the Microbiology Department at [phone]. TEST LIMITATIONS: As with all diagnostic procedures, the results obtained should be used in conjunction with other clinical information available the physician, including confirmation by another method. Negative results can occur in samples containing antigen below lower limits of detection of the assay. One negative specimen does not rule out the CONTINUED ON NEXT PAGE * ML=Testing performed at Main Lab DEPARTMENT OF PATHOLOGY, [address] [place] [address] Vinny Best M.D. Director DONAVANNJ # [id number] Patient: GALINA SAN [id number] (Continued) Specimen: [id number] Collected: 09/21/15 Received: 09/21/15-1200 (Continued) Procedure Result Reported Site O P: Giardia/Cryptospor Screen Final (continued) 09/21/15- 1440 possibility of a parasitic infection. To improve detection it is recommended that three specimens be collected on separate days over a period of not more than seven days. The use of colonic washes, aspirates or other diluted sample types has not been established and could affect the performance of the assay. Stool samples contaminated with an oily or particulate base (eg. Barium, mineral oil etc.) could interfere with the test and are not recommended. * ML - MAIN LAB ([facility]) . END OF REPORT * ML=Testing performed at Main Lab DEPARTMENT OF PATHOLOGY, [address] [place] [address] Vinny Best M.D. Director [facility] # [id number] 40 SEE RESULT BELOW Name: GALINA SAN : [address]: Prabhjot Lynn MD Acct: [id number] Unit: [id number] AGE: 39 Location: [facility] Re09/21/15 SEX: F Status: REG REF SPEC: [id number] GIN: 09/21/15-[address]: Prabhjot Lynn MD REQ: [id number] RECD: 09/21/15 STATUS: COMP _ SOURCE: STOOL SPDESC: ORDERED: E.coli O157:H7/R, CRonald almanza PCR/S, Stool Culture/R, Fecal Lactoferr/R , O P: Danilo/Crypt/R Procedure Result Reported Site E.coli O157:H7 Culture Final 09/23/15- 1259 ML E. coli 0157 Culture Negative Stool Culture Final 09/23/15- 1231 ML Result No enteric pathogens isolated Testing for Salmonella, Shigella, Aeromonas, Plesiomonas, Yersinia and Campylobacter are included in a Stool Culture. Vibrio spp not routinely tested for in a stool culture. If testing is desired, please request specifically when placing test order. Sensitivities not routinely performed on stool isolates, as antibiotics may prolong the carriage rate of bacteria. Please contact the microbiology lab if sensitivities are required. Stool Specimen Description Final 09/21/15- 1445 ML Stool Color Brown Stool Form Nonformed Stool Consistency Soft Shiga Toxin 1 2 Final 09/22/15- 1009 ML Organism 1 Negative Shiga Toxin 1 2 CONTINUED ON NEXT PAGE * ML=Testing performed at [facility] Lab DEPARTMENT OF PATHOLOGY, [address] [place] [address] Vinny Best M.D. Director [facility] # [id number] Patient: GALINA SAN [id number] (Continued) Specimen: [id number] Collected: 09/21/15-0135 Received: 09/21/15-1199 (Continued) Procedure Result Reported Site Shiga Toxin 1 2 Final (continued) 09/22/15- 1009 Immunochromatographic Assay C. difficile PCR Final 09/21/15- 1531 ML Organism 1 027 Presumptive NEGATIVE Organism 2 Toxigenic C.diff NEGATIVE Fecal Lactoferrin (Stool WBC) Final 09/21/15- 1442 ML Fecal Lactoferrin Negative by Immunoassay TEST LIMITATIONS: Assay detects elevated levels of lactoferrin released from fecal leukocytes as a marker of intestinal inflammation. The test may not be appropriate in immunocompromised persons. Fecal samples from breast fed infants should not be used with this assay. O P: Giardia/Cryptospor Screen Final 09/21/15- 1440 ML Organism 1 Neg Cryptosporidium/Giardia Giardia and cryptosporidium antigen testing performed by enzyme immunoassay. If patient is immunocompromised or has traveled to or is from a developing country, a full ova and parasite exam with microscopic (OPMIC) is recommended. All samples will be held one month in case full ova and parasite testing is requested. Contact the Microbiology Department at [phone]. TEST LIMITATIONS: As with all diagnostic procedures, the results obtained should be used in conjunction with other clinical information available the physician, including confirmation by another method. Negative results can occur in samples containing antigen below lower limits of detection of the assay. One negative specimen does not rule out the CONTINUED ON NEXT PAGE * ML=Testing performed at Main Lab DEPARTMENT OF PATHOLOGY, [address] [place] [address] Vinny Best M.D. Director [facility] # [id number] Patient: GALINA SAN [id number] (Continued) Specimen: [id number] Collected: 09/21/15 Received: 09/21/15 (Continued) Procedure Result Reported Site O P: Giardia/Cryptospor Screen Final (continued) 09/21/15- 1440 possibility of a parasitic infection. To improve detection it is recommended that three specimens be collected on separate days over a period of not more than seven days. The use of colonic washes, aspirates or other diluted sample types has not been established and could affect the performance of the assay. Stool samples contaminated with an oily or particulate base (eg. Barium, mineral oil etc.) could interfere with the test and are not recommended. * ML - MAIN LAB ([facility]) . END OF REPORT * ML=Testing performed at Main Lab DEPARTMENT OF PATHOLOGY, [address] [place] [address] Vinny Best M.D. Director [facility] # [id number] 41 SEE RESULT BELOW Name: GALINA SAN : [address]: Prabhjot Lynn MD Acct: [id number] Unit: [id number] AGE: 39 Location: [facility] Re09/21/15 SEX: F Status: REG REF SPEC: [id number] GIN: 09/21/15-[address] [facility] [address]: Prabhjot Lynn MD REQ: [id number] RECD: 06 STATUS: RES _ SOURCE: STOOL SPDESC: ORDERED: E.coli O157:H7/R, C. diff PCR/S, Stool Culture/R, Fecal Lactoferr/R , O P: Giar/Crypt/R Procedure Result Reported Site E.coli O157:H7 Culture PENDING Stool Culture PENDING Stool Specimen Description Final 09/21/15- 1445 ML Stool Color Brown Stool Form Nonformed Stool Consistency Soft Shiga Toxin 1 2 PENDING C. difficile PCR Final 09/21/15- 1531 ML Organism 1 027 Presumptive NEGATIVE Organism 2 Toxigenic C.diff NEGATIVE Fecal Lactoferrin (Stool WBC) Final 09/21/15- 1442 ML Fecal Lactoferrin Negative by Immunoassay TEST LIMITATIONS: Assay detects elevated levels of lactoferrin released from fecal leukocytes as a marker of intestinal inflammation. The test may not be appropriate in immunocompromised persons. Fecal samples from breast fed infants should not be used with this assay. O P: Giardia/Cryptospor Screen Final 09/21/15- 1440 ML CONTINUED ON NEXT PAGE * ML=Testing performed at Main Lab DEPARTMENT OF PATHOLOGY, [address] [place] [address] Vinny Best M.D. Director [facility] # [id number] Patient: GALINA SAN [id number] (Continued) Specimen: [id number] Collected: 09/21/15 Received: 09/21/15-1199 (Continued) Procedure Result Reported Site O P: Giardia/Cryptospor Screen Final (continued) 09/21/15- 1440 Organism 1 Neg Cryptosporidium/Giardia Giardia and cryptosporidium antigen testing performed by enzyme immunoassay. If patient is immunocompromised or has traveled to or is from a developing country, a full ova and parasite exam with microscopic (OPMIC) is recommended. All samples will be held one month in case full ova and parasite testing is requested. Contact the Microbiology Department at [phone]. TEST LIMITATIONS: As with all diagnostic procedures, the results obtained should be used in conjunction with other clinical information available the physician, including confirmation by another method. Negative results can occur in samples containing antigen below lower limits of detection of the assay. One negative specimen does not rule out the possibility of a parasitic infection. To improve detection it is recommended that three specimens be collected on separate days over a period of not more than seven days. The use of colonic washes, aspirates or other diluted sample types has not been established and could affect the performance of the assay. Stool samples contaminated with an oily or particulate base (eg. Barium, mineral oil etc.) could interfere with the test and are not recommended. * ML - [facility] ([facility]) . END OF REPORT * ML=Testing performed at Main Lab DEPARTMENT OF PATHOLOGY, [address] [place] [address] Vinny Best M.D. Director [facility] # [id number] 42 SEE RESULT BELOW Name: GALINA SAN : [address]: Prabhjot Lynn MD Acct: [id number] Unit: [id number] AGE: 39 Location: [facility] Re09/21/15 SEX: F Status: REG REF SPEC: [id number] GIN: 09/21/15-[address] [facility] [address]: Prabhjot Lynn MD REQ: [id number] RECD: 09/21/15-1199 STATUS: RES _ SOURCE: STOOL SPDESC: ORDERED: E.coli O157:H7/R, C. diff PCR/S, Stool Culture/R, Fecal Lactoferr/R , O P: Giar/Crypt/R Procedure Result Reported Site E.coli O157:H7 Culture PENDING Stool Culture PENDING Stool Specimen Description PENDING Shiga Toxin 1 2 PENDING C. difficile PCR PENDING Fecal Lactoferrin (Stool WBC) PENDING O P: Giardia/Cryptospor Screen Final 09/21/15- 1440 ML Organism 1 Neg Cryptosporidium/Giardia Giardia and cryptosporidium antigen testing performed by enzyme immunoassay. If patient is immunocompromised or has traveled to or is from a developing country, a full ova and parasite exam with microscopic (OPMIC) is recommended. All samples will be held one month in case full ova and parasite testing is requested. Contact the Microbiology Department at [phone]. CONTINUED ON NEXT PAGE * ML=Testing performed at Main Lab DEPARTMENT OF PATHOLOGY, [address] [place] [address] Vinny Best M.D. Director [facility] # [id number] Patient: GALINA SAN [id number] (Continued) Specimen: [id number] Collected: 09/21/15 Received: 09/21/15-1199 (Continued) Procedure Result Reported Site O P: Giardia/Cryptospor Screen Final (continued) 09/21/15- 4880 TEST LIMITATIONS: As with all diagnostic procedures, the results obtained should be used in conjunction with other clinical information available the physician, including confirmation by another method. Negative results can occur in samples containing antigen below lower limits of detection of the assay. One negative specimen does not rule out the possibility of a parasitic infection. To improve detection it is recommended that three specimens be collected on separate days over a period of not more than seven days. The use of colonic washes, aspirates or other diluted sample types has not been established and could affect the performance of the assay. Stool samples contaminated with an oily or particulate base (eg. Barium, mineral oil etc.) could interfere with the test and are not recommended. * ML - [facility] ([facility]) . END OF REPORT * ML=Testing performed at Main Lab DEPARTMENT OF PATHOLOGY, [address] [place] [address] Vinny Best M.D. Director [facility] # [id number] 43 SEE RESULT BELOW Name: GALINA SAN : [address]: Prabhjot Lynn MD Acct: [id number] Unit: [id number] AGE: 39 Location: [facility] Re09/21/15 SEX: F Status: REG REF SPEC: [id number] GIN: 09/21/15-[address] [facility] [address]: Prabhjot Lynn MD REQ: [id number] RECD: 09/21/15 STATUS: RES _ SOURCE: STOOL SPDESC: ORDERED: E.coli O157:H7/R, C. diff PCR/S, Stool Culture/R, Fecal Lactoferr/R , O P: Giar/Crypt/R Procedure Result Reported Site E.coli O157:H7 Culture PENDING Stool Culture PENDING Stool Specimen Description PENDING Shiga Toxin 1 2 PENDING C. difficile PCR PENDING Fecal Lactoferrin (Stool WBC) Final 09/21/15- 1442 ML Fecal Lactoferrin Negative by Immunoassay TEST LIMITATIONS: Assay detects elevated levels of lactoferrin released from fecal leukocytes as a marker of intestinal inflammation. The test may not be appropriate in immunocompromised persons. Fecal samples from breast fed infants should not be used with this assay. O P: Giardia/Cryptospor Screen Final 09/21/15- 1440 ML CONTINUED ON NEXT PAGE * ML=Testing performed at Main Lab DEPARTMENT OF PATHOLOGY, [address] [place] [address] Vinny Best M.D. Director [facility] # [id number] Patient: JASWINDERGALINA Stone [id number] (Continued) Specimen: [id number] Collected: 09/21/15 Received: 09/21/15 (Continued) Procedure Result Reported Site O P: Giardia/Cryptospor Screen Final (continued) 09/21/15- 1440 Organism 1 Neg Cryptosporidium/Giardia Giardia and cryptosporidium antigen testing performed by enzyme immunoassay. If patient is immunocompromised or has traveled to or is from a developing country, a full ova and parasite exam with microscopic (OPMIC) is recommended. All samples will be held one month in case full ova and parasite testing is requested. Contact the Microbiology Department at [phone]. TEST LIMITATIONS: As with all diagnostic procedures, the results obtained should be used in conjunction with other clinical information available the physician, including confirmation by another method. Negative results can occur in samples containing antigen below lower limits of detection of the assay. One negative specimen does not rule out the possibility of a parasitic infection. To improve detection it is recommended that three specimens be collected on separate days over a period of not more than seven days. The use of colonic washes, aspirates or other diluted sample types has not been established and could affect the performance of the assay. Stool samples contaminated with an oily or particulate base (eg. Barium, mineral oil etc.) could interfere with the test and are not recommended. * ML - MAIN LAB ([facility]) . END OF REPORT * ML=Testing performed at Main Lab DEPARTMENT OF PATHOLOGY, [address] [place] [address] Vinny Best M.D. Director [facility] # [id number] 44 Because ethnic data is not always readily available, this report includes an eGFR for both -Americans and non- Americans. The National Kidney Disease Education Program (NKDEP) does not endorse the use of the MDRD equation for patients that are not between the ages of 18 and 70, are , have extremes of body size, muscle mass, or nutritional status, or are non- or non-. According to the National Kidney Foundation, irrespective of diagnosis, the stage of the disease is based on the level of kidney function: Stage Description GFR(mL/min/1.73 m(2)) 1 Kidney damage with normal or decreased GFR 90 2 Kidney damage with mild decrease in GFR 60-89 3 Moderate decrease in GFR 30-59 4 Severe decrease in GFR 15-29 5 Kidney failure <15 (or dialysis) 45 Please note: The following may produce a false positive D Dimer test: - Rheumatoid factor greater than 60 IU/ml - Plasma hemoglobin greater than 0.05 gm/dl - Bilirubin greater than 50 mg/dl - Lipids greater than 1000 mg/dl - FDP greater than 20 ug/ml 46 Because ethnic data is not always readily available, this report includes an eGFR for both -Americans and non- Americans. The National Kidney Disease Education Program (NKDEP) does not endorse the use of the MDRD equation for patients that are not between the ages of 18 and 70, are , have extremes of body size, muscle mass, or nutritional status, or are non- or non-. According to the National Kidney Foundation, irrespective of diagnosis, the stage of the disease is based on the level of kidney function: Stage Description GFR(mL/min/1.73 m(2)) 1 Kidney damage with normal or decreased GFR 90 2 Kidney damage with mild decrease in GFR 60-89 3 Moderate decrease in GFR 30-59 4 Severe decrease in GFR 15-29 5 Kidney failure <15 (or dialysis) 47 Acute inflammation: >10.00 48 Reference Range and Interpretation: TnI (ng/mL) Interpretation Less Than 0.03 ng/mL Not supportive of diagnosis of [place] 0.03 - 0.50 ng/mL Indeterminate: suggest serial studies if clinically indicated. Greater than 0.5 ng/mL Consistent with diagnosis of [place] 49 Because ethnic data is not always readily available, this report includes an eGFR for both -Americans and non- Americans. The National Kidney Disease Education Program (NKDEP) does not endorse the use of the MDRD equation for patients that are not between the ages of 18 and 70, are , have extremes of body size, muscle mass, or nutritional status, or are non- or non-. According to the National Kidney Foundation, irrespective of diagnosis, the stage of the disease is based on the level of kidney function: Stage Description GFR(mL/min/1.73 m(2)) 1 Kidney damage with normal or decreased GFR 90 2 Kidney damage with mild decrease in GFR 60-89 3 Moderate decrease in GFR 30-59 4 Severe decrease in GFR 15-29 5 Kidney failure <15 (or dialysis) 50 void, clear, yellow 51 FASTING 52 Because ethnic data is not always readily available, this report includes an eGFR for both -Americans and non- Americans. The National Kidney Disease Education Program (NKDEP) does not endorse the use of the MDRD equation for patients that are not between the ages of 18 and 70, are , have extremes of body size, muscle mass, or nutritional status, or are non- or non-. According to the National Kidney Foundation, irrespective of diagnosis, the stage of the disease is based on the level of kidney function: Stage Description GFR(mL/min/1.73 m(2)) 1 Kidney damage with normal or decreased GFR 90 2 Kidney damage with mild decrease in GFR 60-89 3 Moderate decrease in GFR 30-59 4 Severe decrease in GFR 15-29 5 Kidney failure <15 (or dialysis) 53 FASTING 54 Desirable <150 Borderline high 150-199 High 200-499 Very High >500 55 Desirable <200 Borderline high 200-239 High >239 56 Low <40 Desirable: 40-60 High: >60 57 Desirable <100 Near Optimal 100-129 Borderline high 130-159 High 160-189 Very High >189 58 Interpretation: 10-19 ng/mL (mild to moderate deficiency) REFERENCE VALUE 25-HYDROXY D TOTAL (D2+D3) Optimum levels in the healthy population are 20-50, patients with bone disease may benefit from higher levels within this range. Test Performed by: [facility] - [address] [address] Demand Manager: Eder Summers M.D. 59 RUN DATE: 01/07/14 [facility] LAB LIVE PAGE 1 RUN TIME: 2947 [address] [place], [place] [address] Specimen Inquiry Name: GALINA SAN : [address]: Bernabe Martines MD Acct: [id number] Unit: [id number] AGE: 38 Location: ENDO Re01/03/14 SEX: F Status: REG REF SPEC: [id number] GIN: 01/03/14-[address] [facility] [address]: Bernabe Martines MD REQ: [id number] RECD: 01/03/14 STATUS: ROEL SUNSHINE DR: Tyler Jarvis DO _ ORDERED: LEVEL IV/2 FINAL DIAGNOSIS 1. Colon, right, biopsy: A. Large intestinal mucosa with no significant pathologic abnormality. B. No evidence of microscopic/lymphocytic colitis, collagenous colitis, or other chronic inflammatory bowel process identified. 2. Colon, sigmoid, biopsy: A. Large intestinal mucosa with no significant pathologic abnormality. B. No evidence of microscopic/lymphocytic colitis, collagenous colitis, or other chronic inflammatory bowel process identified. CLINICAL HISTORY Screening colonoscopy with diarrhea and rectal bleeding PRE-OPERATIVE DIAGNOSIS 1. Rule out microscopic colitis POST-OPERATIVE DIAGNOSIS Screening colonoscopy to cecum with ease - all normal, excellent prep. Abdomen obese. Normal colon and terminal GROSS DESCRIPTION 1. The specimen is received in formalin labeled Galina San, Biopsy Right Colon, Rule Out Microscopic Colitis, and consists of two almanzar-white irregular soft tissue fragments averaging 0.9 x 0.2 x 0.1 cm. Submitted entirely, one cassette. 2. The specimen is received in formalin labeled Galina San, Biopsy Sigmoid Colon, CONTINUED ON NEXT PAGE * ML=Testing performed at Main Lab DEPARTMENT OF PATHOLOGY, [address] [place] [address] Vinny Best M.D. Director [facility] # [id number] RUN DATE: 01/07/14 [facility] LAB LIVE PAGE 2 RUN TIME: 1618 [facility] [employer] [place], [place] [address] Specimen Inquiry Patient: GLAINA SAN [id number] (Continued) GROSS DESCRIPTION (Continued) GROSS DESCRIPTION (Continued) and consists of two almanzar, irregular soft tissue fragments averaging 0.8 x 0.2 x 0.1 cm. Submitted entirely, one cassette. 1. Signed (signature on file) Vinny Best MD 4895 END OF REPORT * ML=Testing performed at Main Lab DEPARTMENT OF PATHOLOGY, [facility] [employer] [place], [place] [address] Vinny Best M.D. Director [facility] # [id number] 60 Because ethnic data is not always readily available, this report includes an eGFR for both -Americans and non- Americans. The National Kidney Disease Education Program (NKDEP) does not endorse the use of the MDRD equation for patients that are not between the ages of 18 and 70, are , have extremes of body size, muscle mass, or nutritional status, or are non- or non-. According to the National Kidney Foundation, irrespective of diagnosis, the stage of the disease is based on the level of kidney function: Stage Description GFR(mL/min/1.73 m(2)) 1 Kidney damage with normal or decreased GFR 90 2 Kidney damage with mild decrease in GFR 60-89 3 Moderate decrease in GFR 30-59 4 Severe decrease in GFR 15-29 5 Kidney failure <15 (or dialysis) 61 Because ethnic data is not always readily available, this report includes an eGFR for both -Americans and non- Americans. The National Kidney Disease Education Program (NKDEP) does not endorse the use of the MDRD equation for patients that are not between the ages of 18 and 70, are , have extremes of body size, muscle mass, or nutritional status, or are non- or non-. According to the National Kidney Foundation, irrespective of diagnosis, the stage of the disease is based on the level of kidney function: Stage Description GFR(mL/min/1.73 m(2)) 1 Kidney damage with normal or decreased GFR 90 2 Kidney damage with mild decrease in GFR 60-89 3 Moderate decrease in GFR 30-59 4 Severe decrease in GFR 15-29 5 Kidney failure <15 (or dialysis) 62 FASTING 63 HDL Interpretation: Undesirable: High Risk: Less than 40 mg/dL Desirable: Low Risk: Greater than 60 mg/dL 64 LDL Interpretation: Low Risk Optimal Level: LDL Less than 100 mg/dL Near or Above Optimal: LDL 100-129 mg/dL Borderline High Risk: LDL 130-159 mg/dL High Risk: LDL 160-189 mg/dL Very High Risk: LDL Greater than 189 mg/dL 65 RESULT: Results suggest past infection. In most populations, at least 90% of the adult population will have been infected with EBV sometime in the past and therefore, will be positive for anti-VCA/IgG and anti- EBNA. Antibodies to EBNA develop 6-8 weeks after primary infection and remain present for life. Presence of VCA/ IgM antibodies indicates recent primary infection with EBV. Test Performed by: [address] [address] Demand Manager: August Dumont III, M.D. Procedures Date Code Description Status 04/30/2018 81116 SC/Im Injections Completed 12/26/2017 12999 SC/Im Injections Completed 10/25/2017 01488 SC/Im Injections Completed 08/03/2017 32454 SC/Im Injections Completed 06/13/2017 87413 SC/Im Injections Completed 04/12/2017 76300 SC/Im Injections Completed 02/23/2017 90863 SC/Im Injections Completed 01/03/2017 72559 Electrocardiogram Complete Completed 05/11/2016 12267454 Mammogram Completed 09/18/2015 72345 Electrocardiogram Complete Completed 01/03/2014 51602008 Colonoscopy Completed 03/29/2013 80912 Oximetry, Single Completed 12/19/2012 43237 Osteopathic Manipulative Treatment 1 Or 2 Body Region Completed 12/19/2012 62276 Electrocardiogram Complete Completed 05/25/2012 07157 Oximetry, Single Completed 05/25/2012 29841 Electrocardiogram Complete Completed 05/25/2012 92226 X-Ray Chest Two Views Completed Encounters Type Date Location Provider Dx Diagnosis Office Visit 06/12/2018 Main Office Shon López R03.0 Elevated 9:20a blood-pressure reading, w/o diagnosis of htn E66.01 Morbid (severe) obesity due to excess calories K59.00 Constipation, unspecified Z71.3 Dietary counseling and surveillance Office Visit 05/24/2018 8:00a Main Office Leidy Barros Z01.818 Encounter for other P.A. preprocedural examination R03.0 Elevated blood-pressure reading, w/o diagnosis of htn E53.8 Deficiency of other specified B group vitamins Office Visit 05/15/2018 3:00p Main Office Leidy Barros, E66.01 Morbid ( severe) P.A. obesity due to excess calories Z71.3 Dietary counseling and surveillance Z71.82 Exercise counseling Z68.35 Body mass index (BMI) 35.0-35.9, adult Office Visit 04/30/2018 Main Office Simona M35.01 Sicca syndrome with 10:45a Edmond Scott. keratoconjunctivitis F33.9 Major depressive disorder, recurrent, unspecified H25.12 Age-related nuclear cataract, left eye G43.109 Migraine with aura, not intractable, w/o status migrainosus R03.0 Elevated blood-pressure reading, w/o diagnosis of htn E53.8 Deficiency of other specified B group vitamins Z71.89 Other specified counseling Office Visit 03/30/2018 Main Office Simona M35.01 Sicca syndrome with 9:15a Edmond Scott. keratoconjunctivitis F33.9 Major depressive disorder, recurrent, unspecified E66.9 Obesity, unspecified H53.8 Other visual disturbances G43.109 Migraine with aura, not intractable, w/o status migrainosus Office Visit 02/20/2018 9:40a Main Office Leidy Barros E66.9 Obesity, unspecified P.A. Z00.01 Encounter for general adult medical exam w abnormal findings Z13.220 Encounter for screening for lipoid disorders Z68.36 Body mass index (BMI) 36.0-36.9, adult Office Visit 02/08/2018 8:45a Main Office Tyler Jarvis, E53.8 Deficiency of other D.O. specified B group vitamins F33.9 Major depressive disorder, recurrent, unspecified F41.9 Anxiety disorder, unspecified M35.01 Sicca syndrome with keratoconjunctivitis E66.9 Obesity, unspecified Z23 Encounter for immunization Z41.8 Encntr for oth proc for purpose oth [facility] Z71.89 Other specified counseling Office Visit 08/03/2017 1:30p Main Office Tyler Jarvis, F33.9 Major depressive D.O. disorder, recurrent, unspecified F41.9 Anxiety disorder, unspecified E53.8 Deficiency of other specified B group vitamins M06.9 Rheumatoid arthritis, unspecified M35.01 Sicca syndrome with keratoconjunctivitis E66.9 Obesity, unspecified E55.9 Vitamin D deficiency, unspecified Office Visit 06/13/2017 3:45p Main Office Tyler Jarvis, F33.9 Major depressive D.O. disorder, recurrent, unspecified F41.9 Anxiety disorder, unspecified M06.9 Rheumatoid arthritis, unspecified E53.8 Deficiency of other specified B group vitamins M35.01 Sicca syndrome with keratoconjunctivitis Z68.37 Body mass index (BMI) 37.0-37.9, adult E66.9 Obesity, unspecified Office Visit 04/12/2017 2:30p Main Office Tyler Jarvis, E53.8 Deficiency of other D.O. specified B group vitamins M06.9 Rheumatoid arthritis, unspecified F41.9 Anxiety disorder, unspecified E55.9 Vitamin D deficiency, unspecified F33.9 Major depressive disorder, recurrent, unspecified Z23 Encounter for immunization Office Visit 02/23/2017 1:30p Main Office Tyler Jarvis, M06.9 Rheumatoid D.O. arthritis, unspecified F41.9 Anxiety disorder, unspecified E53.8 Deficiency of other specified B group vitamins E55.9 Vitamin D deficiency, unspecified Office Visit 01/03/2017 2:00p Main Office Tyler Jarvis, R07.89 Other chest pain D.O. R06.02 Shortness of breath H53.8 Other visual disturbances F41.9 Anxiety disorder, unspecified Z00.01 Encounter for general adult medical exam w abnormal findings Z71.89 Other specified counseling Office Visit 06/15/2016 11:00a Main Office Jazmín Lund, F33.9 Major depressive PA disorder, recurrent, unspecified F50.81 Binge eating disorder E66.9 Obesity, unspecified Z79.890 Hormone replacement therapy (postmenopausal) Z68.35 Body mass index (BMI) 35.0-35.9, adult Office Visit 05/04/2016 11:00a Main Office Jazmín Lund PA E66.3 Overweight F43.0 Acute stress reaction R03.0 Elevated blood-pressure reading, w/o diagnosis of htn Z68.35 Body mass index (BMI) 35.0-35.9, adult Office Visit 04/15/2016 3:45p Main Office Prabhjot Emmanuel R03.0 Elevated Emelyn Lynn blood-pressure reading, w/o diagnosis of htn E66.3 Overweight Z71.89 Other specified counseling Z23 Encounter for immunization Z41.8 Encntr for oth proc for purpose oth [facility] Z68.35 Body mass index (BMI) 35.0-35.9, adult Office Visit 11/18/2015 5:00p Main Office Tyler Jarvis, B02.9 Zoster without D.O. complications Office Visit 10/26/2015 9:45a Main Office Tyler Jarvis, G43.109 Migraine with aura, D.O. not intractable, w/o status migrainosus E55.9 Vitamin D deficiency, unspecified Z00.00 Encntr for general adult medical exam w/o abnormal findings Office Visit 09/19/2015 9:15a Main Office Prabhjot Emmanuel R10.12 Left upper Klepack, M.D. quadrant pain R19.7 Diarrhea, unspecified R10.30 Lower abdominal pain, unspecified Office Visit 09/18/2015 1:45p Main Office Tyler Jarvis, R10.30 Lower abdominal D.O. pain, unspecified R06.02 Shortness of breath R07.89 Other chest pain R94.31 Abnormal electrocardiogram [ECG] [EKG] Office Visit 01/30/2015 1:40p Main Office Pallavi Cheek, R10.32 Left lower RPA-C quadrant pain R11.2 Nausea with vomiting, unspecified Office Visit 10/23/2014 10:30a Main Office Tyler Jarvis, 268.9 Vitamin D D.O. 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 Maxillary Office Visit 10/22/2013 10:30a Main Office Tyler Jarvis, V76.51 Special Screening D.O. For Malignant Neoplasms Colon 455.3 Hemorrhoids External W/O Complication 786.2 Cough V70.0 Examination General Medical Routine AT Health Care Facility 578.1 Blood In Stool Melena 787.99 Digestive Symptoms Other Office Visit 06/01/2013 10:15a Main Office Aldair Gordon, 789.04 Pain Abdominal M.D. Left Lower Quadrant 788.41 Urinary Frequency 724.2 Lumbago Office Visit 04/05/2013 9:30a Main Office Tyler Jarvis, 466.0 Bronchitis Acute D.O. V04.81 Need For Prophylactic Vaccination & Inoculation/Influenza V06.1 Sfzafmmzwb-Xxeuwte-Gyeakxex Combined (DTaP) V07.2 Prophylactic Immunotherapy Office Visit 03/29/2013 3:15p Main Office Tyler Jarvis D.O. 786.2 Cough 466.0 Bronchitis Acute Office Visit 12/19/2012 4:45p Main Office Tyler Jarvis, 786.50 Pain Chest D.O. Unspec 739.2 Lesion Nonallopathic Thoracic Region Not Elsewhere Class 739.8 Lesion Nonallopathic Rib Cage Not Elsewhere Class Office Visit 12/04/2012 9:30a Main Office Tyler Jarvis, 683 Lymphadenitis Acute D.O. 787.20 Dysphagia, Unspecified 462 Pharyngitis Acute Office Visit 06/15/2012 2:00p Main Office Leidy Barros V70.0 Examination General P.A. Medical Routine AT Health Care Facility 737.30 Scoliosis & Kyphoscoliosis Idiopathic 719.45 Pain Joint Pelvic Region & Thigh 278.00 Obesity Unspec 346.00 Migraine Classical W/O Intractable W/O Status Migrainosus 723.9 Cervical Region Musculoskeletal Disorders & Symptoms Unspec V77.1 Screening Diabetes Mellitus V77.0 Screening Thyroid Disorders V77.91 Screening For Lipoid Disorders Office Visit 05/25/2012 3:40p Main Office Shon López 786.59 Pain Chest Other 466.0 Bronchitis Acute 737.30 Scoliosis & Kyphoscoliosis Idiopathic Plan of Treatment Future Appointment(s):02/21/2019 2:00 pm - Tyler Jarvis D.O. at Main [id number]/24/2018 - Shon LópezZ01.818 Encounter for other preprocedural dcidpqkazcvG42.0 Elevated blood-pressure reading, without diagnosis of lmzkozK32.8 Deficiency of other specified B group vitamins
[2018-06-26 19:54] VITALS: BP 161/87
--- NOTE | 2018-06-26 20:04 | UC ---
UC General HPI - HPI Summary HPI Summary: yesterday, burning with urination then frequency and hesitancy. She then developed an ache in her L back and now has a fever as well. self txing with IB, Tylenol and large amounts of water and cranberry juice. no abdominal pain or v/d. prior hx uti's, pyelonephritis and kidney stones. tmax 102 today. - History of Current Complaint Stated Complaint: URINARY Time Seen by Provider: 06/26/18 19:47 Hx Obtained From: Patient Hx Last Menstrual Period: hysterectomy Onset/Duration: Gradual Onset Timing: Constant Pain Intensity: 8 Associated Signs & Symptoms: Positive: Dysuria, Fever. Negative: Abdominal Pain - Allergy/Home Medications Allergies/Adverse Reactions: Allergies Allergy/AdvReac Type Severity Reaction Status Date / Time hydrocodone Allergy Hallucinati Verified 06/26/18 19:54 ons latex Allergy Hives Verified 06/26/18 19:54 nitrofurantoin Allergy Hives Verified 06/26/18 19:54 [From Macrobid] sulfamethoxazole Allergy Hives Verified 06/26/18 19:54 [From Sulfamethoprim] trimethoprim Allergy Hives Verified 06/26/18 19:54 [From Sulfamethoprim] Home Medications: Home Medications Acetaminophen [Tylenol Extra Strength] 1,000 mg PO DAILY 06/26/18 [History Confirmed 06/26/18] PMH/Surg Hx/FS Hx/Imm Hx - Additional Past Medical History Additional PMH: uti, RA, sjogren's GI/ History: Kidney Stones - Surgical History Surgical History: Yes Surgery Procedure, Year, and Place: X2;. TUMMY TUCK;. T&A;. EAR TUBES X6;. HYSTERECTOMY 2016;. DENTAL SURGERY WITH IMPLANTS; - Family History Known Family History: Positive: Unknown - Social History Alcohol Use: None Substance Use Type: None Smoking Status (MU): Never Smoked Tobacco Review of Systems All Other Systems Reviewed And Are Negative: Yes Constitutional: Positive: Fever Gastrointestinal: Positive: Diarrhea, Nausea, Other - L flank pain Genitourinary: Positive: Dysuria, Hematuria, Frequency, Urgency Physical Exam Triage Information Reviewed: Yes Appearance: Ill-Appearing - but non toxic Vital Signs: Initial Vital Signs Temp 100.1 F 06/26/18 19:49 Pulse 100 06/26/18 19:49 Resp 16 06/26/18 19:49 BP 161/87 06/26/18 19:49 Pulse Ox 100 06/26/18 19:49 Vital Signs Reviewed: Yes Eyes: Positive: Conjunctiva Clear ENT: Positive: Normal ENT inspection Neck: Positive: Supple, Nontender, No Lymphadenopathy Respiratory: Positive: Lungs clear, Normal breath sounds, No respiratory distress Cardiovascular: Positive: RRR, No Murmur Abdomen Description: Positive: Nontender, No Organomegaly, Soft, CVA Tenderness (L). Negative: CVA Tenderness (R), Distended, Guarding Bowel Sounds: Positive: Present Musculoskeletal: Positive: ROM Intact Neurological: Positive: Alert Psychological: Positive: Age Appropriate Behavior Skin Exam: Normal Re-Evaluation - Re-Evaluation First Eval Re-Evaluation Time: 20:20 Change: Worse - pt notes her L falnk pain has become severe and she wants to go the the ER. her will drive. pt declined EMS. Course/Dx - Course Course Of Treatment: U/A=blood, protein, leukocytes and nitrites with a culture pending. [facility] ER called. Report given to Lisa Krause NP. I advised of + u/a and pyelonephritis on exam, fever to 102 plus worsening L flank pain here. I advised pt seems to be feeling much more ill quickly and that I tx her with cipro po and zofran while here. pt decline narcotic pain medication here. pt declined ems transport, driving her to the ER. - Differential Dx - Multi-Symptom Differential Diagnoses: Other - pyelonephritis, obstructive uropathy, doubt sepsis at this time. - Diagnoses Provider Diagnosis: Pyelonephritis, Left flank pain Discharge - Sign-Out/Discharge Documenting (check all that apply): Patient Departure All imaging exams completed and their final reports reviewed: No Studies - Discharge Plan Condition: Stable Disposition: TRANS HIGHER LVL OF CARE FAC Referrals: Tyler Jarvis DO [Primary Care Provider] - Additional Instructions: LEAVE HERE AND GO DIRECT[facility] TO [facility]. - Billing Disposition and Condition Condition: STABLE Disposition: Trans Higher Lvl of Care Fac
[2018-06-26] MEDS ORDERED: Ciprofloxacin TAB* 500 MG PO ONE (20:07)
[2018-06-26] MEDS ORDERED: Ondansetron ODT TAB* 4 MG PO ONE (20:15)
== END 2018-06-26 20:31 | disposition home health service (06) ==
LOC: UCCORT 18:56
DX: N12 Tubulo-interstitial nephritis, not specified as acute or chronic (principal); R10.9 Unspecified abdominal pain; Z87.440 Personal history of urinary (tract) infections; Z87.442 Personal history of urinary calculi; Z88.5 Allergy status to narcotic agent; Z88.1 Allergy status to other antibiotic agents; Z88.2 Allergy status to sulfonamides; Z91.040 Latex allergy status
CPT/HCPCS: 81003; 87077; 87086; 87186; 99212; A9270-GY; G0463

== ENCOUNTER 2019-02-11 10:58 | Observation (INO) | payer OTHER ==
[2019-02-11] MEDS ORDERED: Ondansetron INJ* 2 MG/ML VIAL IV ONE ×2 (11:29→17:21)
[2019-02-11] MEDS ORDERED: Ketorolac INJ* 30 MG/ML 1 ML VIAL IV PUSH ONE (11:29)
--- NOTE | 2019-02-11 11:31 | ED ---
Abdominal Pain/Female - HPI Summary HPI Summary: Patient is a 43-year-old female is 43 y.o female who presents to the ER for increased abdominal pain and vomiting. Pt. notes she was seen at an outside ER a few weeks ago and dx with a passed kidney stone and gallstones. Pt. was referred to surgery. Pt. states that pain became severe today and she had numerous episodes of vomiting. Past hx of HTN. Pt. was seen by Dr. Larkin in office today and he was concerned pain may be related to a kidney stone given location sent pt. to the ED for further evaluation. Sxs are moderate in severity. No current modifying factors. - History of Current Complaint Chief Complaint: EDAbdPain Stated Complaint: ABD PAIN,FLANK PAIN Time Seen by Provider: 02/11/19 11:16 Hx Obtained From: Patient Hx Last Menstrual Period: hysterectomy Pain Intensity: 7 Allergies/Adverse Reactions: Allergies Allergy/AdvReac Type Severity Reaction Status Date / Time hydrocodone Allergy Hallucinati Verified 02/11/19 11:05 ons latex Allergy Hives Verified 02/11/19 11:05 nitrofurantoin Allergy Hives Verified 02/11/19 11:05 [From Macrobid] sulfamethoxazole Allergy Hives Verified 02/11/19 11:05 [From Sulfamethoprim] trimethoprim Allergy Hives Verified 02/11/19 11:05 [From Sulfamethoprim] Home Medications: Home Medications amLODIPine TAB* [Norvasc 5 mg TAB*] 5 mg PO DAILY 02/11/19 [History Confirmed ] PMH/Surg Hx/FS Hx/Imm Hx Previously Healthy: Yes Endocrine/Hematology History: Denies: Hx Diabetes, Hx Systemic Lupus Erythematosus Cardiovascular History: Denies: Hx Hypertension, Hx Pacemaker/ICD Respiratory History: Denies: Hx Asthma, Hx Chronic Obstructive Pulmonary Disease (COPD), Hx Pneumonia, Hx Pulmonary Embolism History: Denies: Hx Dialysis, Hx Renal Disease Musculoskeletal History: Denies: Hx Rheumatoid Arthritis, Hx Osteoporosis Sensory History: Denies: Hx Hearing Aid Neurological History: Denies: Hx Dementia, Hx Migraine, Hx Seizures, Hx Transient Ischemic Attacks (TIA) Psychiatric History: Denies: Hx Anxiety, Hx Depression, Hx Panic Disorder, Hx Schizophrenia, Hx Bipolar Disorder - Cancer History Hx Chemotherapy: No - Surgical History Surgery Procedure, Year, and Place: X2;. TUMMY TUCK;. T&A;. EAR TUBES X6;. HYSTERECTOMY 2016;. DENTAL SURGERY WITH IMPLANTS; Infectious Disease History: No Infectious Disease History: Denies: Traveled Outside the [place] in Last 30 Days - Family History Known Family History: Positive: Unknown, Non-Contributory - Social History Occupation: Employed Full-time Lives: With Family Alcohol Use: None Substance Use Type: Reports: None Smoking Status (MU): Never Smoked Tobacco Review of Systems Constitutional: Negative Negative: Fever Cardiovascular: Negative Negative: Chest Pain Respiratory: Negative Negative: Shortness Of Breath, Cough Positive: Abdominal Pain, Vomiting, Nausea Positive: flank pain. Negative: dysuria Musculoskeletal: Negative Skin: Negative Neurological: Negative All Other Systems Reviewed And Are Negative: Yes Physical Exam Triage Information Reviewed: Yes Vital Signs On Initial Exam: Initial Vitals Temp Pulse Resp BP Pulse Ox 96.6 F 79 18 139/102 98 02/11/19 11:02 02/11/19 11:02 02/11/19 11:02 02/11/19 11:02 02/11/19 11:02 Vital Signs Reviewed: Yes Appearance: Positive: Well-Appearing - Pt. sitting up in bed in NAD. Skin: Positive: Warm, Dry Head/Face: Positive: Normal Head/Face Inspection Eyes: Positive: Normal, EOMI Neck: Positive: Supple Respiratory/Lung Sounds: Positive: Clear to Auscultation, Breath Sounds Present Cardiovascular: Positive: Normal, RRR Abdomen Description: Positive: Other: - Obese. Abd. is soft with marked tenderness to LUQ, RUQ and RLQ. Neurological: Positive: Normal, CN Intact II-III Psychiatric: Positive: Affect/Mood Appropriate Procedures - Sedation Patient Received Moderate/Deep Sedation with Procedure: No Diagnostics - Vital Signs Vital Signs Temp Pulse Resp BP Pulse Ox 02/11/19 11:02 96.6 F 79 18 139/102 98 - Laboratory Result Diagrams: 02/11/19 12:11 02/11/19 12:11 Lab Statement: Any lab studies that have been ordered have been reviewed, and results considered in the medical decision making process. Abdominal Pain Fem Course/Dx - Course Course Of Treatment: Pt. presenting with diffuse abd. pain and left flank pain. Pt. has pretty significant tenderness on exam. Pt. states she is very sensitive to pain medication and would prefer to not have a narcotic for pain. Will try toradol. Fluids and zofran given. CT ordered for further eval. CBC shows mild leukocytosis of 11. CRP minimally elevated. Minimal chronic elevation in ALT. U/ A negative. CT shows cholelithiasis without other acute findings per radiology. On re-exam pt. still having pain and has RUQ pain. WIll obtain u/s for further evaluation. GB u/s shows cholelithiasis without signs of infection. on re-exam pt. still having pain and nausea and has not been able to take po fluids here. Pt. concerned about going home given her pain and N/V. Case discussed with Dr. Webster. Discussed with Dr. Larkin who recommends HIDA scan. Pt. examined by surgical PA, Jose Pate. Discussed with Dr. Medina who will admit for pain control and HIDA in the am. - Diagnoses Differential Diagnosis: Positive: Appendicitis, Bowel Obstruction, Gall Bladder Disease, Hepatitis, Pancreatitis, Renal Colic, Urinary Tract Infection Provider Diagnoses: Abdominal pain, Cholelithiasis Discharge ED - Sign-Out/Discharge Documenting (check all that apply): Patient Departure - Discharge Plan Condition: Stable Disposition: ADMITTED TO [facility] Referrals: Tyler Jarvis DO [Primary Care Provider] - - Billing Disposition and Condition Condition: STABLE Disposition: Admitted to [facility]
[2019-02-11] MEDS: NS 0.9% 1000 ML** 1,000 ML IV ONE ×2 (11:39→17:27)
[2019-02-11 11:49] LABS: Urine Appearance Cloudy; Urine Bilirubin Negative (Negative); Urine Blood Negative (Negative); Urine Color Yellow; Urine Glucose Negative (Negative); Urine Ketones Negative (Negative); Urine Nitrite Negative (Negative); Urine Protein Negative (Negative); Urine Specific Gravity 1.016 (1.010-1.030); Urine Urobilinogen Negative (Negative)
[2019-02-11 12:20] LABS: ABS Basophils 0.1 10^3/ul (0-0.2); ABS Eosinophils 0.4 10^3/ul (0-0.6); ABS Lymphocytes 3.8 10^3/ul (1.0-4.8); ABS Monocytes 0.8 10^3/ul (0-0.8); Eosinophil % 3.2 %; Hematocrit 38 % (35-47); Hemoglobin 12.8 g/dL (12.0-16.0); Lymphocyte % 34.6 %; Mean Corpuscular HGB Conc 34 g/dL (31-36); Mean Corpuscular Hemoglobin 29 pg (27-31); Mean Corpuscular Volume 86 fL (80-97); Mean Platelet Volume 7.8 fL (7.4-10.4); Nucleated Red Blood Cells % 0.1; Platelet Count 288 10^3/uL (150-450); Red Blood Count 4.38 10^6 /uL (3.70-4.87); Red Cell Distribution Width 13 % (10-15); White Blood Count 11.1 10^3/uL (3.5-10.8)
[2019-02-11 13:03] LABS: Albumin/Globulin Ratio 1.5 (1-3); BUN/Creatinine Ratio 15.4 (8-20); C Reactive Protein 10.06 mg/L (<8.01); Calcium 8.9 mg/dL (8.6-10.3); EGFR African American 119.8 (>60); Globulin 2.7 g/dL (2-4); Potassium 3.6 mmol/L (3.5-5.0); Total Protein 6.7 g/dL (6.4-8.9)
[2019-02-11] MEDS ORDERED: Morphine 4 MG/ML VIAL (1 ml) 4 MG/ML VIAL IV ONE (17:20)
[2019-02-11] MEDS ORDERED: Ondansetron INJ* 2 MG/ML VIAL IV PRN (18:11)
[2019-02-11] MEDS ORDERED: Ketorolac INJ* 30 MG/ML 1 ML VIAL IV PUSH PRN (18:18)
[2019-02-11] MEDS ORDERED: Lactated Ringers 1000 ML Bag* 1,000 ML IV ONE (18:38)
[2019-02-11] MEDS ORDERED: Iohexol 300* (CONTRAST) 10 ML SDV IV ONE (20:23)
--- NOTE | 2019-02-11 21:00 | CONS ---
CC: Dr. Ladonna Boucher; Dr. Paolo Larkin; Dr. Tyler Jarvis, [facility] ; Dr. Sukhdeep Slaughter * SURGICAL CONSULTATION NOTE: DATE OF CONSULT: 02/11/19 ATTENDING SURGEON: Dr. Ladonna Boucher. CHIEF COMPLAINT: Abdominal pain. HISTORY OF PRESENT ILLNESS: This a 43-year-old female who was seen in our office this morning by Dr. Larkin and referred to the ED for further workup. She gives a background history of approximately 2 weeks of intermittent left upper quadrant abdominal pain that she described as a stabbing pain with a burning sensation to the left side and left flank that had been intermittent, but over the last 24 hours has become continuous. She rates the pain as high as a 7/10 and has only received Toradol here in the ER because of her hesitation to receive narcotics because of side effects. She did not report any particular association with food, though in the past 24 hours, she has had nausea and vomiting x2 or 3 even after water. She notes that pain is worse even with minimal contact over the left side of her abdomen such as from clothing. She notes no change with positioning or activity. Again, she describes the stabbing sensation in the left of center, upper abdomen with radiation of a burning sensation to the left side including the left flank. She has a history of diarrhea alternating with constipation, though has had loose stools more consistently in the last 2 weeks. She describes these as nonbloody , loose bowel movements that occurred about twice a day. She also denies any hematemesis or other symptoms of dysuria, increased frequency or hematuria. She has a past history of multiple kidney stones, which have all passed spontaneously, though she does not describe her current symptoms as being similar to those. In fact, she states that her current symptoms are most jeffy to the abdominal pain that she felt from endometriosis prior to her hysterectomy. She has had multiple prior colonoscopies because of family history, the most recent being in 2013, though I was unable to open that report. She has known cholelithiasis as an incidental while admitted at [facility] for nephrolithiasis in June of this year. She was told that if she was not vomiting, then it was unlikely that her gallstones were a problem. Because of the current recent constellation of symptoms, she was referred by her primary for evaluation by Dr. Mecenas. The patient had been initiated on a new medication by Dr. Slaughter for her Sjogren's, but did not continue it because of intolerance. She states that the onset of abdominal symptoms also coincided with the new medication, though she is not sure about any direct relationship. PAST MEDICAL HISTORY: Hypertension, Sjogren's syndrome, obstructive sleep apnea (untreated because of intolerance of CPAP), obesity, history of endometriosis. PAST SURGICAL HISTORY: Previous surgeries include laparoscopic assisted total abdominal hysterectomy with bilateral salpingo-oophorectomy in 2014 for endometriosis, x2, abdominoplasty in 2012 (she did have some wound healing problems at that time), tonsillectomy and adenoidectomy remotely, left cataract extraction with lens implant. No reported surgical or anesthesia complications. CURRENT MEDICATIONS: 1. Premarin 0.3 mg once daily for hormone replacement therapy, status post hysterectomy. 2. Amlodipine 5 mg once daily. DRUG ALLERGIES: HYDROCODONE (hallucinations) (she has had similar side effects from other narcotics, but may tolerating low doses), LATEX (hives), NITROFURANTOIN, SULFA, TRIMETHOPRIM (all of the above have caused hives). FAMILY HISTORY: Negative for anesthesia problems, bleeding or clotting disorder. SOCIAL HISTORY: The patient is and her is present for the interview and exam. 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 She denies use of tobacco or alcohol. REVIEW OF SYSTEMS: General: No recent constitutional symptoms other than per the HPI. Hospital admission for nephrolithiasis in June 2018. HEENT: No additions other than chronic mouth dryness. Cardiovascular: No chest pain, palpitations, or history of heart murmur. She is treated for hypertension. Respiratory: No history of asthma, chronic cough, or shortness of breath. GI: As above per HPI. No additions. : As above. No additions. INVESTIGATIONS CONSULTANT: I did not enquire. Endocrine: No diabetes or thyroid dysfunction. Neurological: The patient does have a past history of shingles, but not recently. PHYSICAL EXAMINATION: Height 5 feet 8 inches, weight 240 pounds, BMI 36.5. Temperature 96.6, blood pressure ranging from 125 to 164 systolic/66 to 106 diastolic, pulse ranged from 78 to 97, respirations 17, room air saturation 96% to 98%. General: Well-nourished obese female, who appears to be in no acute distress. Skin: Warm and dry. No suspicious rashes or lesions noted. HEENT: Pupils equal and round, reactive. EOMs intact. No conjunctival pallor or scleral icterus. Oropharynx: Mucous membranes are reasonably moist. No intraoral lesions. Neck: No thyromegaly, lymphadenopathy, or masses. Heart: Regular rate and rhythm. No murmur noted. Lungs: Clear to auscultation. No rales or wheezes. Breasts: Not examined. Abdomen: Possibly some mild distention per the patient, particularly to the left of midline. Bowel sounds are present, possibly somewhat hyperactive. Abdomen is soft with mild tenderness throughout, but most of that is referred tenderness to the left side where she has more severe tenderness even to light touch. There are no palpable masses or organomegaly, within limits of exam for body habitus. Back: She has some mild mid to lower thoracic and lumbar spinous process tenderness as well as some left CVA tenderness. No tenderness on the right. Extremities: No musculoskeletal problems noted. No edema. Pulses not checked. DIAGNOSTIC STUDIES/LAB DATA: Laboratory of note, white blood cell count 11,100 , hemoglobin 12.8. Electrolytes: BUN, and creatinine are all normal. ALT is mildly elevated at 60. The remaining LFTs are normal. CRP is mildly elevated at 10. Lipase is normal at 29. Urinalysis is unremarkable. CT scan of the abdomen and pelvis revealed fatty liver changes with some hepatomegaly, gallstones present with a contracted gallbladder, but without inflammatory changes (the CT was noncontrast). No other acute findings. Ultrasound confirmed the presence of a contracted gallbladder with stones, but without pericholecystic fluid or gallbladder wall thickening. The common bile duct was normal in size. IMPRESSION: Left-sided abdominal pain of undetermined etiology, though without apparent surgical cause despite the presence of cholelithiasis and past history of nephrolithiasis. PLAN: Admission to the medical service. For pain and nausea control, IV hydration. We will continue to follow the patient. A HIDA scan has been ordered, but will probably not be completed until the morning. ALISTAIR ALLEN [id number]/[facility] #: [id number] BHARTI
[2019-02-11] MEDS: amLODIPine TAB* 5 MG PO SCH (21:20)
[2019-02-11] MEDS ORDERED: Conjugated Estrogens TAB* 0.3 MG TAB PO SCH (21:30)
[2019-02-11] MEDS: Acetaminophen TAB* 325 MG PO PRN (22:15)
[2019-02-11] MEDS ORDERED: Conjugated Estrogens TAB* 0.3 MG TAB PO ONE (22:30)
--- NOTE | 2019-02-11 23:30 | HP ---
CC: Dr. Jarivs * ADMISSION HISTORY AND PHYSICAL: DATE OF ADMISSION: 02/11/19 PRIMARY CARE PROVIDER: Dr. Jarvis. MY ATTENDING WHILE IN THE HOSPITAL: Dr. Anabela Augustin.* (DICTATED BY ALISTAIR RIBEIRO) CHIEF COMPLIANT: 1. Abdominal pain times several days. 2. Nausea and vomiting x1 day. HISTORY OF PRESENT ILLNESS: Ms. Ingram is a 43-year-old female with a past medical history significant for endometriosis, Sjogren's syndrome, rheumatoid arthritis and hypertension as well as migraines who presented to the emergency department after being referred from her surgeon's office due to several days of worsening abdominal pain on the left side of her abdomen, in the upper and lower quadrants, worse with palpation and eating overnight. Two nights ago, she developed fever, nausea and vomiting with any food. She has not had any pain like this before. She did have kidney stone and pain this year, which she states was much worse than this and passed by itself. The patient has also had endometriosis pain, but this has not recurred after she had a hysterectomy with oophorectomy. The patient has some GI manifestations when treated for Sjogren's , which mainly manifested as alternative diarrhea and constipation, some abdominal pain but never like this. The patient denies any fevers or chills. The patient denies any recent weight loss or weight gain. The patient has been unable to tolerate any fluids for over a day now. The patient has not taken ibuprofen. The patient is not on any NSAIDs. The patient did have a migraine last week for which she took sumatriptan. The patient is not on disease modifying therapy for her Sjogren's or RA. The patient recently stopped pain medications that were supposed to be for symptomatic treatment of her RA, that she does not remember the name of, is not available in the computer at this time. The patient at this time states her pain is 7/10, slightly improved after Toradol and Morphine. The patient states that she was able to tolerate some broth after 2 dose of Zofran, but this did not improve her pain significantly. The patient was seen in consultation by Surgery, who does not believe she had a surgical indication, recommended admission for pain control. Due to this, we were asked to evaluate the patient for admission to the hospital. PAST MEDICAL HISTORY: Sjogren's syndrome, rheumatoid arthritis, endometriosis, elevated blood pressure, shingles, and migraine. PAST SURGICAL HISTORY: Hysterectomy, cataract surgery, tummy tuck. MEDICATIONS: 1. Amlodipine 5 mg p.o. daily. 2. Premarin 0.3 mg p.o. daily. 3. Sumatriptan 150 mg p.o. as needed for migraines. ALLERGIES: HYDROCODONE, BACTRIM, NITROFURANTOIN, LATEX and SULFA. FAMILY HISTORY: The patient's mother has lupus. The patient's father has prostate cancer and polyps. The patient had a paternal grandmother who of colon cancer. The patient's brother has history of Padilla's syndrome. The patient's sister is healthy. SOCIAL HISTORY: The patient denies ever smoking. The patient drinks occasional alcohol. The patient denies illicit drug use. 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 The patient is and has 2 children. The patient's surrogate decision maker is her , Vasquez Ingram. REVIEW OF SYSTEMS: A 10-point review of systems was reviewed and is negative except as above in the HPI. PHYSICAL EXAMINATION GENERAL: The patient is a 43-year-old female, who appears stated age and sitting comfortably in bed, in no acute distress. VITAL SIGNS: At the time of evaluation, temperature 96.6, pulse rate 77, respiratory rate 16, oxygen saturation 97% on room air, and blood pressure 147/ 49. HEENT: Head: Normocephalic, atraumatic. Sclerae anicteric. No conjunctival injection. Nasal mucosa moist. Oral mucosa moist. No pharyngeal erythema, discharge or exudate. NECK: Supple, nontender. No lymphadenopathy. No carotid bruits auscultated. No JVD. RESPIRATORY: Clear to auscultation bilaterally. No wheezes, rales or rhonchi. Good air exchange bilaterally. CARDIAC: Regular rate and rhythm. No clicks, murmurs, gallops or rubs. Pulses are 2+ in the dorsalis pedis, posterior tibialis, and radial areas. ABDOMEN: Soft, tender to palpation throughout. No guarding. Rebound equivocally present. Bowel sounds hypoactive in all 4 quadrants. No hepatosplenomegaly, no abdominal bruits auscultated. GENITOURINARY: CVA tenderness bilaterally. No suprapubic tenderness. SKIN: Clean, dry, and intact. No rash. NEURO: Cranial nerves II through XII intact. No focal deficits. Alert and oriented x3. PSYCHIATRIC: Pleasant and cooperative. DIAGNOSTIC STUDIES/LAB DATA: White blood cell count 11.1, hemoglobin 12.8, platelet count 288. Sodium 141, potassium 3.6, carbon dioxide 25, anion gap 7, BUN 10, creatinine 0.65, glucose 89, calcium 8.9, bilirubin 1.0, AST 34, ALT 60 , alkaline phosphatase 90, CRP 10.06, protein 7, albumin 4.0, globulin 2.7, lipase 29. Urine unremarkable. Studies: Noncontrast abdomen and pelvis CT shows no hydronephrosis, nephrolithiasis, hepatomegaly, fatty liver, cholelithiasis with contracted gallbladder. Gallbladder ultrasound read as cholelithiasis with no intra or extrahepatic biliary duct dilatation, hepatic steatosis. ASSESSMENT AND PLAN: Ms. Ingram is a 43-year-old female with a past medical history significant for Sjogren's, rheumatoid arthritis. endometriosis who presents to the emergency department with several days of worsening abdominal pain and now with severe vomiting, who will be admitted for the hospital for pain control, supportive care, and further evaluation of her abdominal pain. 1. Abdominal pain, severe, intractable. The patient's abdominal pain is of unclear cause. The patient has gallstones and hepatic steatosis but neither one of these explains her abdominal pain entirely. The patient will have a HIDA scan based on the recommendation of Surgery. The patient will have a repeat CT of her abdomen and pelvis with contrast at this time to assess for any vascular abnormalities or irregularities in the GI tract. Significant considerations for this patient for CT negative, considerations for abdominal pain are residual endometrioma affecting her GI tract or abdominal wall, GI manifestations of her rheumatoid arthritis or Sjogren's disease including vasculitis or abdominal migraine given her history of migraines, none of these are particularly likely. Further workup pending the outcome of the patient's above testing. The patient will have morphine, Toradol, and Tylenol for pain control. The patient will be on fluids and have Zofran for antiemetic therapy. 2. Hypertension. Continue the patient's amlodipine. 3. Sjogren's. The patient is on no therapy. The patient is not overtly symptomatic from this. 4. Rheumatoid arthritis. The patient has no current joint pain or other extraarticular manifestations of rheumatoid arthritis. Followup outpatient with Rheumatology. 5. Migraines. The patient does not currently have a migraine. Sumatriptan may be considered to be added if this is needed. 6. FEN. The patient will have a clear liquid diet, advancing as tolerated, and fluids 100 mL an hour. 7. Disposition: The patient will be on observation in the hospital. 8. DVT prophylaxis, ambulation and SCDs. The patient is at low risk. TIME SPENT: Approximately 60 minutes was spent on the admission of this patient , 30 of which was spent [id number] with the patient obtaining history and physical and discussing treatment and plan. This plan was discussed with my attending Dr. Anabela Augustin and she is in agreement. ALISTAIR RIBEIRO [id number]/[facility] #: [id number] MTDD
[2019-02-12] MEDS: Morphine INJ* 2 MG/ML 1 ML SYRINGE (TWO MG - NEW SYRINGE VERSION) IV PRN (00:05)
[2019-02-12 06:59] LABS: BUN/Creatinine Ratio 9.1 (8-20); C Reactive Protein 11.1 mg/L (<8.01); Calcium 8.8 mg/dL (8.6-10.3); EGFR African American 117.7 (>60); EGFR Non-African American 97.3 (>60); Magnesium 2.2 mg/dL (1.9-2.7); Potassium 3.9 mmol/L (3.5-5.0)
[2019-02-12] MEDS: CEVIMELINE 30 MG PO SCH ×3 (08:47→21:21)
--- NOTE | 2019-02-12 14:53 | PN ---
Progress Note - Progress Note Date of Service: 02/12/19 SOAP: Subjective: Cont to have epigastric pain. Just completed HIDA. Objective: Vital Signs Temp 97.5 F 02/12/19 11:01 Pulse 81 02/12/19 11:01 Resp 18 02/12/19 11:01 BP 145/83 02/12/19 11:01 Pulse Ox 93 02/12/19 11:01 Gen: NAD Abd: tender in LUQ>RUQ; no Lopez sx. Intake & Output 02/11/19 02/12/19 02/12/19 18:59 06:59 18:59 Intake Total 1999 0 Balance 1999 0 Weight 251 lb 240 lb Intake: IV Fluids 1999 Oral 0 Other: # Bowel Movements 0 # Voids 0 Laboratory Results - last 24 hr 02/12/19 05:59 Sodium 141 Potassium 3.9 Chloride 110 Carbon Dioxide 26 Anion Gap 5 BUN 6 Creatinine 0.66 Est GFR ( Amer) 117.7 Est GFR (Non-Af Amer) 97.3 BUN/Creatinine Ratio 9.1 Glucose 102 H Calcium 8.8 Magnesium 2.2 C-Reactive Protein 11.10 H HIDA images reviewed. No GB seen. Assessment: Abd pain, epigastric with LUQ>RUQ tenderness. Suspect gastric pathology as source and that HIDA is false positive due to NPO status. Plan: D/w pt and . Recommend EGD. Will f/u.
[2019-02-12] MEDS ORDERED: fentaNYL* 50 MCG/ML 2 ML VIAL (100 MCG VIAL) ONE (16:03)
[2019-02-12] MEDS ORDERED: Midazolam* 1 MG/ML 10 ML VIAL (10 MG) ONE (16:03)
--- NOTE | 2019-02-12 16:26 | PN ---
Subjective Date of Service: 02/12/19 Interval History: Patient was seen sitting up in bed. She stated her back and abdomen hurt worse after laying down for the past hour for the HIDA scan. Reports sharp burning pain to left side of abdomen that radiates like a band around to the right side of her abdomen. Nauseated, denies vomiting. Family History: Unchanged from Admission Social History: Unchanged from Admission Past Medical History: Unchanged from Admission Objective Active Medications: Acetaminophen (Tylenol Tab*) 650 mg PO Q6H PRN PRN Reason: MILD PAIN or TEMP > 100.4 Last Admin: 02/11/19 22:15 Dose: 650 mg Amlodipine Besylate (Norvasc Tab*) 5 mg PO BEDTIME [facility] Last Admin: 02/11/19 21:20 Dose: 5 mg Cevimeline HCl (Evoxac(Nf)) 30 mg PO TID [facility] Last Admin: 02/12/19 13:39 Dose: Not Given Estrogens Conjugated (Premarin Tab*) 0.625 mg PO BEDTIME [facility] Ketorolac Tromethamine (Toradol Inj*) 30 mg IV PUSH Q6H PRN PRN Reason: PAIN - MODERATE Morphine Sulfate (Morphine Inj (Syringe))*) 1 mg IV Q2H PRN PRN Reason: PAIN - SEVERE Last Admin: 02/12/19 00:05 Dose: 1 mg Ondansetron HCl (Zofran Inj*) 4 mg IV Q6H PRN PRN Reason: NAUSEA Vital Signs - 8 hr 02/12/19 02/12/19 02/12/19 08:50 11:01 15:15 Temperature 98.2 F 97.5 F 97.7 F Pulse Rate 88 81 76 Respiratory 13 18 16 Rate Blood Pressure 135/84 145/83 142/84 (mmHg) O2 Sat by Pulse 99 93 95 Oximetry Oxygen Devices in Use Now: None Appearance: This is a well developed female, no acute distress. Eyes: No Scleral Icterus, PERRLA Ears/Nose/Mouth/Throat: NL Teeth, Lips, Gums, Clear Oropharnyx, Mucous Membranes Moist Neck: NL Appearance and Movements; NL JVP Respiratory: Symmetrical Chest Expansion and Respiratory Effort, Clear to Auscultation Cardiovascular: NL Sounds; No Murmurs; No JVD, RRR, No Edema Abdominal: - - Tender to bilateral upper quadrants. Lymphatic: No Cervical Adenopathy Extremities: No Edema, No Clubbing, Cyanosis Skin: No Rash or Ulcers, No Nodules or Sclerosis Neurological: Alert and Oriented x 3 Lines/Tubes/Other Access: Clean, Dry and Intact Peripheral IV Result Diagrams: 02/11/19 12:11 02/12/19 05:59 Assess/Plan/Problems-Billing Assessment: - Patient Problems (1) Abdominal pain Current Visit: Yes Status: Acute Code(s): R10.9 - UNSPECIFIED ABDOMINAL PAIN SNOMED Code(s): 69667852 Comment: -Continuing to report left sided abdominal stabbing, burning pain. -Abominal CT showed stable cholelithiasis without pericholecystic inflammatory changes. No renal calculi or pylonephritis. -HIDA scan showed obstruction of cystic duct consistent with acute cholecystitis. Dr. Larkin is aware of this, will possibly operate on her tomorrow, pending results of endoscopy. -Awaiting upper endoscopy to rule out stomach ulcers. (2) Hypertension Current Visit: Yes Status: Acute Code(s): I10 - ESSENTIAL (PRIMARY) HYPERTENSION SNOMED Code(s): 61762161 Comment: -SBP's 130's to 140's. -Continue amlodipine. (3) Sjogrens syndrome Current Visit: Yes Status: Acute Code(s): M35.00 - SICCA SYNDROME, UNSPECIFIED SNOMED Code(s): 20912346 Comment: -States she drinks "a lot" of water at home due to reports of constantly feeling dry. -Continue cevimeline and conjugted estrogen. (4) Rheumatoid arthritis Current Visit: Yes Status: Acute Code(s): M06.9 - RHEUMATOID ARTHRITIS, UNSPECIFIED SNOMED Code(s): 32799547 Comment: -No current joint pain or extraarticular manifestations. Should continue to follow with Rheumatology on an oupatient basis. (5) Migraine Current Visit: Yes Status: Resolved Code(s): G43.909 - MIGRAINE, UNSP, NOT INTRACTABLE, WITHOUT STATUS MIGRAINOSUS SNOMED Code(s): 02656491 Comment: -Does not currently have a migraine. Continue sumatriptan as needed. (6) DVT prophylaxis Current Visit: Yes Status: Acute Code(s): Z29.9 - ENCOUNTER FOR PROPHYLACTIC MEASURES, UNSPECIFIED SNOMED Code(s): 324517895 Comment: -Low risk. Ambulate, use SCD's. (7) Full code status Current Visit: Yes Status: Acute Code(s): Z78.9 - OTHER SPECIFIED HEALTH STATUS SNOMED Code(s): 467674624 Status and Disposition: DISPOSITION: Admit OBV. CONDITION: Guarded. Attending: Anabela Medina
[2019-02-12] MEDS ORDERED: SUMAtriptan SQ* 6 MG/0.5 ML VIAL SUBCUT PRN (16:35)
[2019-02-12] MEDS: NS 0.9% 1000 ML** 1,000 ML IV SCH (18:17)
--- NOTE | 2019-02-12 19:51 | CONS ---
GASTROENTEROLOGY CONSULT DATE OF CONSULT: 02/12/19 CONSULTING PHYSICIANS: Anabela Augustin MD; Tyler Jarvis DO; Paolo Larkin MD. REASON FOR CONSULTATION: Two to [id number] weeks of upper abdominal pain, which worsened on 02/10/19, when she began vomiting a few hours after a turkey dinner. HISTORY OF PRESENT ILLNESS: This 43-year-old woman with a history of Sjogren syndrome, overlap rheumatoid arthritis, endometriosis status post hysterectomy, multiple renal stones, known gallstones, morbid obesity, and hypertension began experiencing what seemed to her a new type of pain 2 to 2-1/2 weeks ago. She recalls precisely that it began when she was awakened at 5 a.m. with an uncomfortal feeling in the mid upper abdomen and the left upper quadrant. She did follow her usual activities and went to work and ate normally that day. There was pain that would come and go like a band. She perceived a bump in the left upper quadrant. She had pain sporadically over the next 10 days. She did not correlate the comings and loreta with anything in particular. She went to work normally, managed household responsibilities normally and generally ate normally with a good appetite. She began, however, to feel nausea after a pasta meal 4 to 5 days ago and also after a steak dinner. She prepared a family turkey dinner for a gathering on 02/10/19, consuming it at 3 p.m. and later that night, began to vomit. She was referred to the surgery office urgently the next day and was seen on 02/11/19. Diagnosis was unclear and she was admitted directly to Medicine. Her white count was slightly elevated at 11.1, LFTs normal, CRP slightly elevated at 10.6 , and CBC otherwise normal. Lab history shows her WBC tends to be over 8 and is often a little high and CRP also is mildly elevated. CT scan showed gallstones without inflammatory change or thickening, no sign of renal calculi and no other acute pathology. Images of the upper GI tract appeared normal. Since admission over the last 24 hours, she has remained afebrile. The nurses report that she said she is hungry and wishes to eat and left the room rather than witness her roommate consuming a regular diet. PAST MEDICAL HISTORY: 1. Morbid obesity. 2. Gallstones - seen on several past imaging CTs. 3. Status post hysterectomy and oophorectomy. 4. Sjogren syndrome - she was given an unknown medication by Dr. Slaughter about a month ago and took it for 2 weeks; "I did wonder if that was related to the onset of these symptoms and so I stopped it." The name is unknown. 5. Abdominal plastic surgery. 6. Hypertension. 7. History of migraines. 8. Fatty Liver - on CT and ALT variably up to 60 to 80 9. Functional Bowel Issues - had normal colonoscopy Sept 201 FAMILY HISTORY: Paternal grandmother of colon cancer. Her mother has lupus. 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 They have 2 children. REVIEW OF SYSTEMS: No history of TIA, CVA, IN, syncope, seizures, arrhythmias, hepatitis. She had a colonoscopy 5 years ago that was negative. PHYSICAL EXAM: She is a substantially overweight woman, smiling, in good spirits. She does say she is hungry. She is holding her left upper quadrant. HEENT exam is unremarkable. There is no icterus. She has no adenopathy. Her lungs are clear and heart sounds are regular. Breast and pelvic exam is deferred. The abdomen is symmetric with normal bowel sounds, generally soft although she is tender in the left upper quadrant more than the right upper quadrant. Extremities show no edema. DIAGNOSTIC STUDIES/LAB DATA: Radiology review - hepatobiliary scan today did not visualize the gallbladder. Right upper quadrant ultrasound yesterday showed gallstones multiple with a 3 mm common duct. IMPRESSION: This 43-year-old woman complains of 2 weeks of abdominal pain that has in the last few days increased and she has been vomiting. The increase, as she recalls it, seems to be related to eating fairly rich meals. 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 Nonetheless, the situation is not clearly defined. An upper endoscopy may help to rule in peptic esophagitis. If it is not ruled in, nonerosive gastroesophageal reflux disease is still a possibility, but cholecystectomy would be a reasonable option. [id number]/[facility] #: [id number] [facility]
[2019-02-12] MEDS: amLODIPine TAB* 5 MG PO SCH (21:21)
[2019-02-12] MEDS: CONJUGATED ESTROGENS 0.625 MG PO SCH (21:24)
--- NOTE | 2019-02-13 00:17 | PRO ---
DATE: 02/12/19 REFERRING PHYSICIAN: Tyler Jarvis DO.* PROCEDURE: Upper gastrointestinal endoscopy and gastric biopsy of mid greater curvature and CLOtest. INDICATION: This 43-year-old woman has been having 2 weeks of abdominal pain. She initially vomited 2 nights ago. She has been able to continue working and has maintained an appetite. She is known to have gallstones. A HIDA scan was nonvis of the gallbladder earlier today. Informed consent was obtained with an opportunity for questions and special concerns. ENDOSCOPIST: Bernabe Martines MD. MEDICATIONS: Midazolam 7, fentanyl 50. FINDINGS: She is a very substantially overweight middle-aged woman, in no overt distress. She was positioned left side down and moderate sedation induced with sequential doses of medication. She tolerated the exam very well and had no gag reflex evident whatsoever. EGD: Larynx - symmetric, limited views. Esophagus - easily entered and the mucosa is normal in the upper, mid and lower esophagus. EG junction at about 40 snug with no erosions or hiatal hernia. The lower esophagus and squamocolumnar junction were absolutely normal with no chronic changes. No erosions were noted. Stomach - some minimal punctate gastritis in the mid gastric body. There were no bleeding erosions and no ulcers or deformity. The rugal pattern was normal. The cardia and fundus were normal on retroflexion. The gastric antrum appeared normal. Duodenum - the pylorus, bulb, and second through portions appeared normal. IMPRESSION: 1. Minimal gastritis - Helicobacter assessment pending. Addendum: Clotest negative 2. Otherwise, normal esophagogastroduodenoscopy. [id number]/[facility] #: [id number] [facility]
[2019-02-13] MEDS: Morphine INJ* 2 MG/ML 1 ML SYRINGE (TWO MG - NEW SYRINGE VERSION) IV PRN (05:03)
[2019-02-13] MEDS: NS 0.9% 1000 ML** 1,000 ML IV SCH (08:00)
[2019-02-13] MEDS: CEVIMELINE 30 MG PO SCH ×2 (09:19→13:03)
[2019-02-13] MEDS ORDERED: Bupivacaine 0.5%* 50 ML MDV VIAL ONE (14:47)
[2019-02-13] MEDS ORDERED: Sodium Citrate/Citric Acid* 15 ML UDC ONE (14:47)
[2019-02-13] MEDS ORDERED: Sodium Citrate/Citric Acid* 15 ML UDC PO ONE (14:47)
[2019-02-13] MEDS ORDERED: ceFAZolin 2 GM in NS PREMIX(*) 2 GM/100 ML BAG IVPB ONE (15:15)
[2019-02-13] MEDS ORDERED: fentaNYL* 50 MCG/ML 2 ML VIAL (100 MCG VIAL) IV PRN (15:16)
[2019-02-13] MEDS ORDERED: Naloxone* 0.4 MG/ML 1 ML VIAL IV PRN (15:16)
[2019-02-13] MEDS ORDERED: DiMENhydriNATE IV* 50 MG/ML VIAL IV PUSH PRN (15:16)
[2019-02-13] MEDS ORDERED: Rocuronium* 10 MG/ML VIAL ONE (15:27)
[2019-02-13] MEDS ORDERED: Lidocaine 2% PF * 5 ML VIAL ONE (15:28)
[2019-02-13] MEDS ORDERED: Propofol* 10 MG/ML 20 ML BTL ONE (15:28)
[2019-02-13] MEDS ORDERED: fentaNYL* 50 MCG/ML 2 ML VIAL (100 MCG VIAL) ONE ×2 (15:28→16:18)
--- NOTE | 2019-02-13 15:51 | PN ---
Subjective Date of Service: 02/13/19 Interval History: Ms. Ingram is not feeling any better today. Left sided abdominal pain persists. She is frustrated that she has not yet had surgery to remove her gallbladder as she believes this will likely cure her current symptoms. She is also hungry and enjoyed the jello she had last night. No concerns from nursing. Family History: Unchanged from Admission Social History: Unchanged from Admission Past Medical History: Unchanged from Admission Objective Active Medications: Acetaminophen (Tylenol Tab*) 650 mg PO Q6H PRN MILD PAIN or TEMP > 100.4 Amlodipine Besylate (Norvasc Tab*) 5 mg PO BEDTIME [facility] Cevimeline HCl (Evoxac(Nf)) 30 mg PO TID [facility] Dimenhydrinate (Dramamine Iv*) 12.5 mg IV PUSH ONCE PRN NAUSEA/VOMITING Estrogens Conjugated (Premarin Tab*) 0.625 mg PO BEDTIME [facility] Fentanyl Citrate (Fentanyl*) 50 mcg IV Q5M PRN PAIN - MODERATE Sodium Chloride (Ns 0.9% 1000 Ml) 1,000 mls @ 75 mls/hr IV PER RATE [facility] Ketorolac Tromethamine (Toradol Inj*) 30 mg IV PUSH Q6H PRN PAIN - MODERATE Morphine Sulfate (Morphine Inj (Syringe))*) 1 mg IV Q2H PRN PAIN - SEVERE Naloxone HCl (Narcan*) 0.08 mg IV Q2M PRN severe induced resp depression Ondansetron HCl (Zofran Inj*) 4 mg IV Q6H PRN NAUSEA Sumatriptan Succinate (Imitrex Sq*) 6 mg SUBCUT .SEE DIRECTIONS PRN MIGRAINE HEADACHE Vital Signs - 8 hr 02/13/19 02/13/19 02/13/19 08:00 11:34 12:25 Temperature 97.6 F 98.1 F 97.4 F Pulse Rate 86 83 75 Respiratory 16 16 16 Rate Blood Pressure 144/84 131/100 155/75 (mmHg) O2 Sat by Pulse 97 99 98 Oximetry 02/13/19 02/13/19 14:40 14:43 Temperature 98.2 F Pulse Rate 77 Respiratory 16 Rate Blood Pressure 122/98 130/77 (mmHg) O2 Sat by Pulse 95 Oximetry Oxygen Devices in Use Now: None Appearance: Middle-aged female sitting in bed in NAD Ears/Nose/Mouth/Throat: Mucous Membranes Moist Neck: NL Appearance and Movements; NL JVP, Trachea Midline Respiratory: Symmetrical Chest Expansion and Respiratory Effort, Clear to Auscultation Cardiovascular: NL Sounds; No Murmurs; No JVD, RRR Abdominal: - - Hypoactive BS, very tender to LUQ and RLQ Extremities: No Edema Neurological: Alert and Oriented x 3 Lines/Tubes/Other Access: Clean, Dry and Intact Peripheral IV Result Diagrams: 02/11/19 12:11 02/12/19 05:59 Assess/Plan/Problems-Billing Assessment: Ms. Ingram is a 43 yo F with PMH of Sjogren's, RA, HTN, migraines; who presented to the ED with c/o left sided abdominal pain and was admitted for further evaluation. - Patient Problems (1) Cholecystitis Code(s): K81.9 - CHOLECYSTITIS, UNSPECIFIED Comment: - HIDA scan showing cystic duct obstruction consistent with acute cholecystitis - Appreciate Surgery consult - OR today for cholecystectomy (2) Abdominal pain Code(s): R10.9 - UNSPECIFIED ABDOMINAL PAIN Comment: - Continued left sided abdominal stabbing, burning pain - Abominal CT showed stable cholelithiasis without pericholecystic inflammatory changes, no renal calculi or pylonephritis - EGD showing mild gastritis, but otherwise normal - Suspect this could be unusual presentation of acute cholecystitis; plan for reevaluation of pain postop (3) Hypertension Code(s): I10 - ESSENTIAL (PRIMARY) HYPERTENSION Comment: - Normotensive - Continue amlodipine (4) Migraines Code(s): G43.909 - MIGRAINE, UNSP, NOT INTRACTABLE, WITHOUT STATUS MIGRAINOSUS Comment: - Reports headaches with use of pain medications throughout this hospitalization , so is hesitant to use analgesics - Continue sumatriptan (5) Sjogrens syndrome Code(s): M35.00 - SICCA SYNDROME, UNSPECIFIED Comment: - States she drinks "a lot" of water at home due to reports of constantly feeling dry - Continue cevimeline, conjugted estrogen (6) Rheumatoid arthritis Code(s): M06.9 - RHEUMATOID ARTHRITIS, UNSPECIFIED Comment: - No current joint pain or extraarticular manifestations and not on outpatient medication - Should continue normal follow with Rheumatology (7) DVT prophylaxis Code(s): Z29.9 - ENCOUNTER FOR PROPHYLACTIC MEASURES, UNSPECIFIED Comment: - SCDs (8) Full code status Code(s): Z78.9 - OTHER SPECIFIED HEALTH STATUS Comment: Status and Disposition: Inpatient. OR today for cholecystectomy. Possible d/c from PACU depending on pain level postoperatively. Attending: Anabela Medina
[2019-02-13] MEDS ORDERED: Labetalol IV* 5 MG/ML 20 ML VIAL ONE (15:59)
[2019-02-13] MEDS ORDERED: Ketorolac INJ* 30 MG/ML 1 ML VIAL ONE (16:41)
[2019-02-13] MEDS ORDERED: Metoclopramide IV* 5 MG/ML 2 ML VIAL ONE (16:41)
[2019-02-13] MEDS ORDERED: Ondansetron INJ* 2 MG/ML VIAL ONE (16:41)
[2019-02-13] MEDS ORDERED: Sugammadex * 200 MG/2 ML VIAL IV PUSH ONE (16:43)
--- NOTE | 2019-02-13 21:24 | OP ---
DATE OF OPERATION: 02/13/19 - ROOM #412 DATE OF : 73 SURGEON: Edilson Tavares MD [employer] SPECIALIST: ALISTAIR Miles PRE-OP DIAGNOSIS: Cholecystitis. POST-OP DIAGNOSIS: Cholecystitis. OPERATIVE PROCEDURE: Laparoscopic cholecystectomy. INDICATION FOR PROCEDURE: Cholecystitis. Risks included, but not limited to, bleeding, infection, injury to intraabdominal contents including the bowel, bile duct, liver, other intraabdominal contents, no relief of symptoms explained to the patient who seemed to understand and agreed to the procedure and all questions were answered. DESCRIPTION OF PROCEDURE: The patient was taken to the operating room, placed supine. Preoperative antibiotics were given. After the successful induction of general endotracheal anesthesia, the abdomen was prepped and draped in sterile fashion. A time-out was performed indicating correct patient and correct procedure. A 5-mm trocar was placed to the right falciform ligament in the subxiphoid position under direct visualization of the camera using a bladeless Optiview trocar. Pneumoperitoneum was achieved with 15 mmHg. A camera was placed in the abdomen. The abdomen was scanned. There was no obvious injury from trocar placement. A 12-mm infraumbilical and 2 right-sided 5-mm trocars were placed all under direct visualization of the camera. The fundus of the gallbladder was grasped and retracted up and over the liver. It appeared chronically inflamed, had a thickened leathery peritoneal covering. The cystic duct was identified, isolated, clipped, and divided. Small cystic arterial branch was divided with Bovie cautery. The gallbladder was removed from the hepatic bed using a Bovie cautery hook, it was placed into an Endo bag and removed through the umbilical port site. A large stone was noted. The right upper quadrant was irrigated and aspirated dry. EBL minimal. Hemostasis was intact. The pneumoperitoneum was released from the abdomen just after the abdomen was scanned and no obvious injury was noted. The trocars were removed. The skin was closed at each site using Monocryl and glue on the skin. She tolerated the procedure well. She was extubated and taken to the recovery room in stable condition. [id number]/[facility] #: [id number] [facility] CENTERDeepti
[2019-02-13] MEDS: CONJUGATED ESTROGENS 0.625 MG PO SCH (21:44)
[2019-02-13] MEDS: Acetaminophen TAB* 325 MG PO PRN (21:44)
[2019-02-13] MEDS: amLODIPine TAB* 5 MG PO SCH (21:44)
[2019-02-14] MEDS: NS 0.9% 1000 ML** 1,000 ML IV SCH (02:15)
--- NOTE | 2019-02-14 09:27 | PN ---
Progress Note - Progress Note Date of Service: 02/14/19 SOAP: Subjective: Comfortable in chair, + BM, tolerated mashed potatoes, only has mild incisional pain. [] Objective: Vital Signs Temp 98.5 F 02/14/19 04:00 Pulse 87 02/14/19 04:00 Resp 16 02/14/19 04:00 BP 158/81 02/14/19 04:00 Pulse Ox 96 02/14/19 05:14 Intake & Output 02/13/19 02/14/19 02/14/19 18:59 06:59 18:59 Intake Total 600 1980 Balance 600 1980 Intake: IV Fluids 600 1980 LR 600 Oral 0 0 Other: Date of Last Bowel [id number] Movement # Bowel Movements 0 0 # Voids 1 1 PEX: GEN: NAD Looks well Chest: CTA CVS: RRR ABD: soft, ND, incisional tenderness incisions C/D/I, + BS's EXT: calves soft non tender [] Assessment: POD 1 S/P Lap Batsheva, epigastric pain resolved, tolerating diet, ambulating in halls [] Plan: OK for D/C Home. F/U Dr Tavares 02/21/19 1PM []
[2019-02-14] MEDS: Acetaminophen TAB* 325 MG PO PRN (09:40)
[2019-02-14 10:07] VITALS: BP 141/73
--- NOTE | 2019-02-15 03:23 | DS ---
CC: Dr. Tyler Jarvis; Dr. Edilson Tavares * DISCHARGE SUMMARY: DATE OF ADMISSION: 02/11/19 DATE OF DISCHARGE: 02/14/19 PRIMARY CARE PROVIDER: Dr. Tyler Jarvis. SURGEON: Dr. Edilson Tavares. ATTENDING PHYSICIAN: Dr. Eugenio Oscar.* (DICTATED BY ADRIANA HUERTAS NP) PRIMARY DIAGNOSIS: 1. Acute cholecystitis status post cholecystectomy. SECONDARY DIAGNOSES: 1. Sjogren's syndrome. 2. Rheumatoid arthritis. 3. Hypertension. 4. Migraines. STUDIES WHILE IN THE HOSPITAL: 1. Abdomen and pelvis CT on 02/11/19 reads as no hydronephrosis or nephrolithiasis. Hepatomegaly with fatty infiltration of the liver. Cholelithiasis with contracted gallbladder. 2. Gallbladder ultrasound on 02/11/19 reads as cholelithiasis with no intra or extrahepatic biliary ductal dilatation. Hepatic steatosis. 3. Abdomen and pelvis CT on 02/11/19 reads as stable cholelithiasis without pericholecystic inflammatory change. No renal or ureteral calculi and no evidence for acute pyelonephritis. No other acute CT pathology. 4. HIDA scan on 02/12/19 reads as obstruction of the cystic duct consistent with acute cholecystitis in the appropriate clinical context. PROCEDURES WHILE IN THE HOSPITAL: 1. EGD on 02/12/[address] Martines. 2. Cholecystectomy on 02/13/[address] Tavares. HISTORY OF PRESENT ILLNESS AND HOSPITAL COURSE: Ms. Ingram is a 43-year-old female with past medical history of hypertension, migraine, Sjogren's syndrome and rheumatoid arthritis, who presented to the emergency room on 02/11/19 with complaints of abdominal pain, nausea and vomiting. Please see the history and physical by ALISTAIR Retana, for a complete summary of the events leading up to this hospitalization. In short, the patient had several days of worsening left- sided abdominal pain, worse with palpation and eating. She subsequently developed a fever, nausea and vomiting and was unable to tolerate p.o. intake. For those reasons, she presented to the emergency room. In the emergency room, she had imaging as noted above. She had a very mildly elevated CRP at 10, though no other lab abnormalities. Vitals were noted to be stable. Though because of her intractable pain, nausea and vomiting, she was admitted by the hospitalist service. The patient was placed on IV fluids, analgesics, and antiemetics. She was seen in consultation by Dr. Larkin on 02/12/19, at which point he recommended an EGD. 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 GI was consulted and the patient was seen by Dr. Martines on 02/12/19. He did perform an EGD at that time and his impression was that as minimal gastritis, though otherwise normal EGD. Surgery reevaluated the patient yesterday on and at that point decided to proceed with a cholecystectomy. The patient underwent cholecystectomy on 02/13/[address] Tavares. She tolerated the procedure well with minimal blood loss. She was kept overnight to ensure resolution of her pain. The patient this morning reports that her pain is essentially completely resolved. She has had no further nausea or vomiting and she is anxious to return home. On exam, she has no focal neurological deficits. She is alert and oriented x4. Her heart has a regular rate and rhythm without murmurs, rubs, or gallops. Lungs are clear to auscultation without rhonchi, wheezes, or rales. Abdomen is soft and nontender. Bowel sounds are normoactive. There are laparoscopic surgical incisions. Physical exam is otherwise benign. Ms. Ingram is stable for discharge today. Most recent vitals are as follows: Temp 98.0, heart rate 86, respiratory rate 18, oxygen saturation 98% on room air , blood pressure 141/73. DISCHARGE MEDICATIONS: New medication: 1. Famotidine 20 mg p.o. b.i.d. Continued medications: 1. Amlodipine 5 mg p.o. daily. 2. Cevimeline 30 mg p.o. t.i.d. 3. Premarin 0.625 mg p.o. daily. DISCHARGE PLAN: Ms. Ingram will be discharged home. Activity will be as tolerated. She has been instructed to gradually increase activity and to not lift anything heavier than 10 pounds for the next 3 weeks. Diet will be low- fat. Medications are noted above. The patient can continue her usual medications. Due to the finding of some mild gastritis on EGD, I did send in a prescription for a 30-day supply of famotidine, though I do not anticipate the patient needing any further treatment after that as she is generally asymptomatic. She will need to follow up with Dr. Tavares and she has an appointment on 02/21/19 at 1 p.m. She should additionally follow up with her primary care provider in the next 4 to 7 days. She has been advised to return to the emergency room or nearest hospital for any worsening of symptoms, shortness of breath, lightheadedness, dizziness, chest discomfort, high fevers, chills, night sweats, loss of consciousness, or any other worrisome signs or symptoms. DISCHARGE CONDITION: Stable. DISCHARGE DISPOSITION: Home. This is a summarized report of a complex medical history and hospital stay. For further details, please see the entire medical record. TIME SPENT: Approximately 45 minutes was spent on this discharge. ADRIANA HUERTAS NP [id number]/[facility] #: [id number]
== END 2019-02-14 11:10 | disposition home or self-care (01) | DRG 419 ==
LOC: ED 10:58 → MED 18:11 → INTOOBSV 02-13 16:00 → OBSVTOIN 02-13 16:00
PROVIDERS: ADMIT Internal Medicine; ATTEND Internal Medicine
DX: K80.01 Calculus of gallbladder with acute cholecystitis with obstruction (principal); M06.9 Rheumatoid arthritis, unspecified; M35.00 Sjogren syndrome, unspecified; G43.909 Migraine, unspecified, not intractable, without status migrainosus; I10 Essential (primary) hypertension; G47.33 Obstructive sleep apnea (adult) (pediatric); K29.70 Gastritis, unspecified, without bleeding; K76.0 Fatty (change of) liver, not elsewhere classified; E66.01 Morbid (severe) obesity due to excess calories; Z88.2 Allergy status to sulfonamides; Z88.8 Allergy status to other drugs, medicaments and biological substances; Z88.1 Allergy status to other antibiotic agents; Z91.040 Latex allergy status; Z79.899 Other long term (current) drug therapy; Z90.710 Acquired absence of both cervix and uterus; Z80.0 Family history of malignant neoplasm of digestive organs; Z72.89 Other problems related to lifestyle; Z68.36 Body mass index [BMI] 36.0-36.9, adult; Z90.722 Acquired absence of ovaries, bilateral; Z87.442 Personal history of urinary calculi
CPT/HCPCS: 36415; 74176; 74177; 76705; 78226; 80048; 80053; 81003; 83690; 83735; 85025; 86140; 87077; 88304; 88305; 96361; 96374; 96375; 96376; 99156; 99157; 99285; A9270-GY; A9537; G0378; J0690; J1885; J2250; J2270; J2405; J2704; J2765; J3010; J3030; J3490; Q9967